=== PATIENT | male | born 1975 | race Caucasian/White ===

== ENCOUNTER 2017-01-04 22:32 | Emergency (ER) | payer OTHER ==
--- NOTE | 2017-01-05 02:06 | ED CLINICAL REPORT ---
Clinical Report - Physicians/Mid Levels [facility] [address] [place] [address] 01/04/2017 22:34 Patient: MANNY GAN Time Seen: 23:03. Arrived- By private vehicle. Historian- patient. CPT: ER phys charges level 4 (#[id number]). HISTORY OF PRESENT ILLNESS Chief Complaint: BACK PAIN. Onset was today and it is still present. It is described as being in the area of the left side of the upper thoracic spine and left interscapular area. The quality is noted to be sharp, aching and "pain". No bladder dysfunction, bowel dysfunction, sensory loss or motor loss. Patient notes an injury. Mechanism of injury- (Cough then sudden pain left posterior thorax. Vomiting due to pain.). No other injury. Similar symptoms previously: None. Recent medical care: Not recently seen/assessed. REVIEW OF SYSTEMS No fever, chills, headache, sore throat or difficulty breathing. No chest pain, skin rash, abdominal pain, nausea or vomiting. No diarrhea, black stools, difficulty with urination or urinary frequency. The patient has had a moderate cough productive of sputum (started the chest pains.). All systems otherwise negative, except as recorded above. PAST HISTORY Myocardial Infarction. Fractured Metacarpal. Hematuria. Coronary Artery Disease. Atypical Chest Pain. Alcohol Intoxication. PTSD. Tetanus Status. Chest Pain. Hyperlipidemia. Hypertension. Narcotic Withdrawal. Immunizations. ADDITIONAL SURGERIES: Back Surgery. Coronary Angioplasty. Pacemaker. Tonsillectomy. Medications: Furosemide Oral. Coreg Oral. Clopidogrel Bisulfate Oral. Vitamin D Oral. Lisinopril Oral. Omeprazole Oral. Atorvastatin Calcium Oral. Aspirin Oral. FLUoxetine HCl Oral. Allergies: Ativan. SOCIAL HISTORY Light tobacco smoker (cigarette)- less than 1/2 a pack per day. No alcohol use or drug use. ADDITIONAL NOTES The nursing notes have been reviewed. PHYSICAL EXAM Vital Signs: 01/04/2017 22:37 BP: 152/98. HR: 61. RR: 26. O2 saturation: 97%. Pain level now: 10. Appearance: Alert. Patient in mild distress. HEENT: Normal external inspection. Eyes: Pupils equal, round and reactive to light. ENT: Ears normal. Pharynx normal. Neck: Normal inspection. Neck nontender. Painless ROM. CVS: Normal heart rate and rhythm. Heart sounds normal. Pulses normal. Respiratory: No respiratory distress. Breath sounds normal. Chest nontender. Abdomen: Soft and nontender. Back: Moderate soft tissue tenderness in the left upper and mid thoracic area. Skin: Skin warm. Normal skin color. No rash. Extremities: Extremities exhibit normal ROM. Extremities nontender. Neuro: Oriented X 3. Mood/affect normal. No motor deficit. No sensory deficit. Reflexes normal. LABS, X-RAYS, AND EKG EKG: No acute process. Normal sinus rhythm. Normal P waves. Normal WIN. Q waves in lead I, aVL, V1, V2, V3, V4 and V5. Prior EKG unavailable. The study has been interpreted contemporaneously. The study has been independently viewed by me. Artifact present. X-Rays: Chest X-ray negative. Rib series negative. PROGRESS AND PROCEDURES Course of Care: Multiple meds for pain and spasm. Patient is stable. Symptoms much better. Patient/family counseled. Disposition: Discharged. Condition: stable. CLINICAL IMPRESSION Intercostal muscle tear , left , posterior chest. Bronchitis. INSTRUCTIONS No strenuous activity. Your Current Medications: CONTINUE TAKING THE FOLLOWING MEDICATIONS: Aspirin Oral. Atorvastatin Calcium Oral. Clopidogrel Bisulfate Oral. Coreg Oral. FLUoxetine HCl Oral. Furosemide Oral. Lisinopril Oral. Omeprazole Oral. Vitamin D Oral. Prescription Medications: Hydrocodone/APAP 5mg/325mg: take 1 to 2 orally every 6 hours as needed for pain. Dispense fifteen (15). No refills. Robaxin 750 mg: Take 2 orally every 6 hours as needed for muscle spasm. Dispense thirty (30). No refills. Substitution is permissible. Cephalexin 500mg: take 1 tab orally every 6 hours for 7 days. No refills Phenergan 12.5 mg tablets: take 1-2 orally every 6 hours as needed for nausea. Dispense fifteen (15). No refill Follow-up: Follow up with your doctor in one week. Call for an appointment. Understanding of the discharge instructions verbalized by patient and family. (Electronically signed by Oscar Roa MD 01/07/2017 16:20)
--- NOTE | 2017-01-05 02:06 | ED NURSING NOTES ---
Clinical Report - Nurses [facility] [place] [address] 01/04/2017 22:34 Patient: MANNY GAN TRIAGE Triage time 22:37. Acuity: LEVEL 4. Chief Complaint: BACK PAIN and (Pulled a back muscle while vomiting two days ago, reports being sick. He said today he was coughing in his shop when his back started hurting extremely bad. Pacemaker placed 2 months ago, last heart attack July 2016. He does not believe this is his heart. No urine or bowel incontinence. Describes pain as "someone tearing muscle off the bone." Alleviating factors none. Aggravating factors any movement.). Alert. --22:50 Edgar Florez R.N. 22:37 01/04/17. BP: 152/98 (regular adult cuff) taken on the left arm, via an automated monitor, while sitting. HR: 61 (normal rate). RR: 26 (regular, unlabored and rapid). O2 saturation: 97% on room air. Pain level now: 07/01. --22:50 Edgar Florez R.N. 22:55 01/04/17. Temp: 98.3 F (temporal). RN notified. --22:56 Mely Mayorga. Weight: 72.5 kg stated. Height/Length: 65 inches Per Patient. BMI: 26.6. --22:43 Edgar Florez R.N. Medications FLUoxetine HCl Oral. --22:45 Edgar Florez R.N. Aspirin Oral. --22:46 Edgar Florez R.N. Atorvastatin Calcium Oral. --22:46 Edgar Florez R.N. Omeprazole Oral. --22:46 Edgar Florez R.N. Lisinopril Oral. --22:46 Edgar Florez R.N. Vitamin D Oral. --22:46 Edgar Florez R.N. Clopidogrel Bisulfate Oral. --22:46 Edgar Florez R.N. Coreg Oral. --22:47 Edgar Florez R.N. Furosemide Oral. --22:47 Edgar Florez R.N. Allergies Ativan. --22:42 Edgar Florez R.N. Medication/allergy information source: the patient. --22:50 Edgar Florez R.N. History Arrived by private vehicle. Historian: patient. Accompanied by family. This started today. He has had tingling of the right hand (mild) and left hand (mild). He has had nausea and vomiting. No chest pain or difficulty breathing. 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 SOCIAL HX: Never smoker. History of heavy drug use: marijuana. No alcohol use. He has not traveled outside the [place] The patient was not exposed to MRSA. No infectious disease exposure. ABUSE ASSESSMENT: Abuse assessment: The patient was asked "Do you feel safe in your home?" and "Has anyone hurt you or threatened to hurt you?". No report of abuse. SELF HARM ASSESSMENT: A self harm assessment was performed. The patient answered "no" to the question "Do you have thoughts of harming or killing yourself?" and "Have you recently had thoughts about harming or killing others?". FALL RISK ASSESSMENT: Fall risk assessment completed. No fall risk identified. NUTRITIONAL RISK ASSESSMENT: The nutritional risk assessment revealed no deficiencies. FUNCTIONAL ASSESSMENT: Functional assessment: no impairments noted. LEARNING NEEDS ASSESSMENT: The learning needs assessment revealed no barriers. SKIN INTEGRITY ASSESSMENT: Skin integrity risk assessment completed. No skin integrity risk identified. --22:50 Edgar Florez R.N. PROBLEMS: Myocardial Infarction. Fractured Metacarpal. Hematuria. Coronary Artery Disease. Atypical Chest Pain. Alcohol Intoxication. PTSD. Tetanus Status. Chest Pain. Hyperlipidemia. Hypertension. Narcotic Withdrawal. Immunizations. --22:42 Edgar Florez R.N. GI Bleeding [RuleOut]. --:42 Edgar Florez R.N. ADDITIONAL SURGERIES: Back Surgery. Coronary Angioplasty. Pacemaker. Tonsillectomy. --22:42 Edgar Florez R.N. Assessment GENERAL / NEURO / PSYCH: Alert. Oriented X 4. Appears in pain. Ankit Coma Scale: 15- eyes open spontaneously (4); best verbal response- oriented x 4 (5); best motor response- obeys commands (6). Patient appears calm and cooperative. ( Unable to lie on stretcher on his back.). RESPIRATORY: ( Tachypneic). BACK: Limited ROM in the back. No vertebral point tenderness. Soft tissue tenderness in the left mid thoracic paraspinous region. SKIN: Skin is warm and dry. --22:50 Edgar Florez R.N. Interventions ID band on patient. Attempted EKG. Pt unable to lie down on stretcher at this time. To treatment room. --22:50 Edgar Florez R.N. 22:48 01/04/2017 Site #1 started via IV in the right forearm with an 18g angiocath, with aseptic technique and good blood return; one attempt. Blood drawn: rainbow set. Labeled in the presence of the patient and sent to the lab. Saline lock flushed with 10 mL saline. --22:48 Edgar Florez R.N. PHYSICAL ASSESSMENT GENERAL / NEURO / PSYCH: Appears in no acute distress. --02:30 Gaston Billy R.N. GENERAL / NEURO / PSYCH: Oriented X 4. --02:30 Gaston Billy R.N. RESPIRATORY: Respirations not labored. CVS: Capillary refill less than 2 seconds. --02:31 Gaston Billy R.N. NURSING PROGRESS NOTES The initial plan of care for this patient has been created This plan of care was discussed with the patient. Neuro-vascular extremity check distal to injury: pulses intact, no edema, capillary refill <2 seconds and sensation intact. Reassurance given to the patient. Two patient identifiers checked. Call light placed in reach. Side rails up x 1. Bed placed in lowest position. Brakes of bed on. --22:50 Edgar Florez R.N. 22:50 01/04/17. BP: 152/105 (regular adult cuff) taken on the right arm, via an automated monitor, while sitting. HR: 64 (normal rate). RR: 20 (regular, unlabored and normal). O2 saturation: 99% on room air. --22:52 Edgar Florez R.N. 23:41 01/04/2017 Zofran ODT (Ondansetron) PO Tablets 4 mg given. Allergies verified and confirmed 5 rights. --23:41 Hari Roberts R.N. 23:45 01/04/2017 Zofran (Ondansetron HCl) IVP 4 mg given over 2 minute(s) via site #1. Allergies verified and confirmed 5 rights. IV patency established. IV site checked: no pain, redness, or swelling. IV flushed thoroughly pre- and post-medication administration. IVP given by RN. --23:45 Hari Roberts R.N. EKG time: (0043 AM). EKG was ordered, performed by a tech and shown to the ED physician. --00:48 Mely Mayorga 00:52. Patient transported to radiology by stretcher with tech. --00:54 Hari Guallpa R.N. 00:55 01/05/2017 PHENERGAN (Promethazine HCl) IVP 25 mg given over 2 minute(s) via site #1. Allergies verified and confirmed 5 rights. IV patency established. IV site checked: no pain, redness, or swelling. IV flushed thoroughly pre- and post-medication administration. --01:05 Hari Guallpa R.NSharonda 00:57 01/05/2017 Toradol IVP 30 mg given over 2 minute(s) via site #1. Allergies verified and confirmed 5 rights. IV patency established. IV site checked: no pain, redness, or swelling. IV flushed thoroughly pre- and post-medication administration. --01:06 Hari Guallpa R.NSharonda 00:59 01/05/2017 Valium (Diazepam) IVP 2 mg given over 2 minute(s) via site #1. Allergies verified, confirmed 5 rights and sedative warning given to the patient and patient's family. IV patency established. IV site checked: no pain, redness, or swelling. IV flushed thoroughly pre- and post-medication administration. --01:07 Hari Guallpa R.N. 01:01 01/05/2017 Dilaudid (HYDROmorphone HCl PF) IVP 0.5 mg given over 2 minute(s) via site #1. Allergies verified, confirmed 5 rights and sedative warning given to the patient. IV patency established. IV site checked: no pain, redness, or swelling. IV flushed thoroughly pre- and post-medication administration. --01:08 Hari Guallpa R.N. ( Report received from Hari Hammond RN). --01:15 Gaston Billy R.N. 01:21 01/05/17. HR: 66. O2 saturation: 95% on room air. --01:22 Gaston Billy R.N. 01:27 01/05/17. BP: 117/79. HR: 78. RR: 20 (regular and unlabored). O2 saturation: 95% on room air. Pain level now: 07/01. --01:28 Gaston Billy R.N. ( Patient states "That nausea is better, amazingly better." Patient is laying in bed, conversing with companions at the bedside. He appears calm.). --01:28 Gaston Billy R.N. 02:25 01/05/2017 PHENERGAN (Promethazine HCl) IVP 12.5 mg given over 2 minute(s) via site #1. Allergies verified and confirmed 5 rights. IV patency established. IV site checked: no pain, redness, or swelling. IV flushed thoroughly pre- and post-medication administration. IVP given by RN. --02:28 Gaston Billy R.N. 02:29 01/05/2017 Site #1 removed upon discharge. Manual pressure and bandage applied. --02:29 Gaston Billy R.N. DISPOSITION / DISCHARGE Departure time: 02:30. Condition at departure: stable. No learning barriers present. Discharge instructions provided and reviewed with the patient. Reviewed warnings. Reviewed medication(s) side effects, precautions, dosing and course information. Prescription(s) given to the patient. Treatments reviewed. Reviewed referrals for followup. Patient and family verbalized understanding. Written instructions provided in Slovenian. The patient was discharged home and accompanied by family. He left the Emergency Department ambulatory and via private vehicle. Family member driving. --02:30 Gaston Billy R.N. 02:29 01/05/17. BP: 112/62. HR: 69. RR: 20 (regular and unlabored). O2 saturation: 96% on room air. Pain level now: 07/01. --02:30 Gaston Billy R.N. Locked/Released at 01/05/2017 2:31 by Gaston Billy R.N.
--- NOTE | 2017-01-05 02:06 | ED CLINICAL REPORT ---
Clinical Report - Physicians/Mid Levels [facility] [address] [place] [address] 01/04/2017 22:34 Patient: MANNY GAN Time Seen: 23:03. Arrived- By private vehicle. Historian- patient. CPT: ER phys charges level 4 (#[id number]). HISTORY OF PRESENT ILLNESS Chief Complaint: BACK PAIN. Onset was today and it is still present. It is described as being in the area of the left side of the upper thoracic spine and left interscapular area. The quality is noted to be sharp, aching and "pain". No bladder dysfunction, bowel dysfunction, sensory loss or motor loss. Patient notes an injury. Mechanism of injury- (Cough then sudden pain left posterior thorax. Vomiting due to pain.). No other injury. Similar symptoms previously: None. Recent medical care: Not recently seen/assessed. REVIEW OF SYSTEMS No fever, chills, headache, sore throat or difficulty breathing. No chest pain, skin rash, abdominal pain, nausea or vomiting. No diarrhea, black stools, difficulty with urination or urinary frequency. The patient has had a moderate cough productive of sputum (started the chest pains.). All systems otherwise negative, except as recorded above. PAST HISTORY Myocardial Infarction. Fractured Metacarpal. Hematuria. Coronary Artery Disease. Atypical Chest Pain. Alcohol Intoxication. PTSD. Tetanus Status. Chest Pain. Hyperlipidemia. Hypertension. Narcotic Withdrawal. Immunizations. ADDITIONAL SURGERIES: Back Surgery. Coronary Angioplasty. Pacemaker. Tonsillectomy. Medications: Furosemide Oral. Coreg Oral. Clopidogrel Bisulfate Oral. Vitamin D Oral. Lisinopril Oral. Omeprazole Oral. Atorvastatin Calcium Oral. Aspirin Oral. FLUoxetine HCl Oral. Allergies: Ativan. SOCIAL HISTORY Light tobacco smoker (cigarette)- less than 1/2 a pack per day. No alcohol use or drug use. ADDITIONAL NOTES The nursing notes have been reviewed. PHYSICAL EXAM Vital Signs: 01/04/2017 22:37 BP: 152/98. HR: 61. RR: 26. O2 saturation: 97%. Pain level now: 10. Appearance: Alert. Patient in mild distress. HEENT: Normal external inspection. Eyes: Pupils equal, round and reactive to light. ENT: Ears normal. Pharynx normal. Neck: Normal inspection. Neck nontender. Painless ROM. CVS: Normal heart rate and rhythm. Heart sounds normal. Pulses normal. Respiratory: No respiratory distress. Breath sounds normal. Chest nontender. Abdomen: Soft and nontender. Back: Moderate soft tissue tenderness in the left upper and mid thoracic area. Skin: Skin warm. Normal skin color. No rash. Extremities: Extremities exhibit normal ROM. Extremities nontender. Neuro: Oriented X 3. Mood/affect normal. No motor deficit. No sensory deficit. Reflexes normal. LABS, X-RAYS, AND EKG EKG: No acute process. Normal sinus rhythm. Normal P waves. Normal WIN. Q waves in lead I, aVL, V1, V2, V3, V4 and V5. Prior EKG unavailable. The study has been interpreted contemporaneously. The study has been independently viewed by me. Artifact present. X-Rays: Chest X-ray negative. Rib series negative. PROGRESS AND PROCEDURES Course of Care: Multiple meds for pain and spasm. Patient is stable. Symptoms much better. Patient/family counseled. Disposition: Discharged. Condition: stable. CLINICAL IMPRESSION Intercostal muscle tear , left , posterior chest. Bronchitis. INSTRUCTIONS No strenuous activity. Your Current Medications: CONTINUE TAKING THE FOLLOWING MEDICATIONS: Aspirin Oral. Atorvastatin Calcium Oral. Clopidogrel Bisulfate Oral. Coreg Oral. FLUoxetine HCl Oral. Furosemide Oral. Lisinopril Oral. Omeprazole Oral. Vitamin D Oral. Prescription Medications: Hydrocodone/APAP 5mg/325mg: take 1 to 2 orally every 6 hours as needed for pain. Dispense fifteen (15). No refills. Robaxin 750 mg: Take 2 orally every 6 hours as needed for muscle spasm. Dispense thirty (30). No refills. Substitution is permissible. Cephalexin 500mg: take 1 tab orally every 6 hours for 7 days. No refills Phenergan 12.5 mg tablets: take 1-2 orally every 6 hours as needed for nausea. Dispense fifteen (15). No refill Follow-up: Follow up with your doctor in one week. Call for an appointment. Understanding of the discharge instructions verbalized by patient and family. (Electronically signed by Oscar Roa MD 01/07/2017 16:20)
--- NOTE | 2017-01-05 02:07 | ED ORDER SUMMARY ---
..... Patient: MANNY GAN OrderSheet [facility] VisitID: [id number] [place] [address] 41y, M Registration Date/Time: 01/04/2017 ORDER SHEET Weight: 72.5 kg (stated) Allergies: Ativan GENERAL ORDERS: Ribs Unilat w PA Chest Left Urgent (00:39 01/05/2017 Talya POTTS) (Ack 0:42 CHagerty ER Gelatin Maker Utility) (1:01 RFay) EKG - ER Stat (00:39 01/05/2017 Talya POTTS) (0:42 Wavesat ER Gelatin Maker Utility) MEDICATION ORDERS: Zofran ODT PO 4 mg (NOW) (23:40 01/04/2017 omanelli R.N. verbal order read back to Talya POTTS) (23:41 JRomanelli R.N.) Phenergan IV 25 mg (NOW) (00:37 01/05/2017 Talya POTTS) (Ack 0:44 JQuivey R.N.) (1:05 JQuivey R.N.) Phenergan IV 12.5 mg (NOW) (02:20 01/05/2017 Talya POTTS) (2:28 DDavis R.N.) IV FLUIDS: Zofran IV 4 mg (NOW) (23:44 01/04/2017 JRomanelli R.N. verbal order read back to Talya POTTS) (23:45 JRomanelli R.N.) Toradol IV 30 mg (NOW) (00:37 01/05/2017 Talya POTTS) (Ack 0:45 JQuivey R.N.) (1:06 JQuivey R.N.) Dilaudid IV 0.5 mg (NOW) (00:37 01/05/2017 Talya POTTS) (Ack 0:45 JQuivey R.N.) (1:08 JQuivey R.N.) Valium IV 2 mg (NOW) (00:38 01/05/2017 Talya POTTS) (Ack 0:45 JQuivey R.N.) (1:07 JQuivey R.N.) ORDER SHEET NOTES: [Electronically signed by Gaston Billy R.N. (02:01/05/2017)] [Electronically signed by Oscar Roa MD (16:20 01/07/2017)] [Electronically locked/signed by Gaston Billy R.N. (02:01/05/2017)]
--- NOTE | 2017-01-05 02:07 | ED ORDER SUMMARY ---
..... Patient: MANNY GAN OrderSheet [facility] VisitID: [id number] [place] [address] 41y, M Registration Date/Time: 01/04/2017 ORDER SHEET Weight: 72.5 kg (stated) Allergies: Ativan GENERAL ORDERS: Ribs Unilat w PA Chest Left Urgent (00:39 01/05/2017 Talya POTTS) (Ack 0:42 CHagerty ER Lease Attendant) (1:01 RFay) EKG - ER Stat (00:39 01/05/2017 Talya POTTS) (0:42 M-SIX ER Lease Attendant) MEDICATION ORDERS: Zofran ODT PO 4 mg (NOW) (23:40 01/04/2017 omanelli R.N. verbal order read back to Talya POTTS) (23:41 JRomanelli R.N.) Phenergan IV 25 mg (NOW) (00:37 01/05/2017 Talya POTTS) (Ack 0:44 JQuivey R.N.) (1:05 JQuivey R.N.) Phenergan IV 12.5 mg (NOW) (02:20 01/05/2017 Talya POTTS) (2:28 DDavis R.N.) IV FLUIDS: Zofran IV 4 mg (NOW) (23:44 01/04/2017 JRomanelli R.N. verbal order read back to Talya POTTS) (23:45 JRomanelli R.N.) Toradol IV 30 mg (NOW) (00:37 01/05/2017 Talya POTTS) (Ack 0:45 JQuivey R.N.) (1:06 JQuivey R.N.) Dilaudid IV 0.5 mg (NOW) (00:37 01/05/2017 Talya POTTS) (Ack 0:45 JQuivey R.N.) (1:08 JQuivey R.N.) Valium IV 2 mg (NOW) (00:38 01/05/2017 Talya POTTS) (Ack 0:45 JQuivey R.N.) (1:07 JQuivey R.N.) ORDER SHEET NOTES: [Electronically signed by Gaston Billy R.N. (02:01/05/2017)] [Electronically signed by Oscar Roa MD (16:20 01/07/2017)] [Electronically locked/signed by Gaston Billy R.N. (02:01/05/2017)]
--- NOTE | 2017-01-05 07:02 | DIAGNOSTIC IMAGING REPORT ---
PROCEDURE: XR RIBS UNILAT W/PA CHEST-LT INDICATION: TRAUMA/INJURY TECHNIQUE: Two views of the left ribs with single PA view chest. COMPARISON: Compared to chest x-ray on 07/19/2013. FINDINGS: LEFT RIBS: Left ribs are normal. No evidence of fracture. CHEST: Left subclavian pacemaker/defibrillator. There is minor linear scarring at the left lung base. Lungs are otherwise clear. Probable left coronary vascular stent. Heart and mediastinum are normal size. IMPRESSION: 1. Normal left ribs. 2. Left subclavian pacemaker/defibrillator. 3. Probable left coronary stent.
--- NOTE | 2017-01-07 16:20 | ED MED RECONCILIATION SUMMARY ---
Patient: MANNY GAN Medication Reconciliation Report [facility] VisitID: [id number] [place] [address] 41y, M Registration Date/Time: 01/04/2017 Weight: 72.5 kg Height/Length: 65 in. BMI: 26.6 ALLERGIES: Ativan The patient's Home Medications are listed below: CONTINUE TAKING THE FOLLOWING MEDICATIONS: Aspirin Oral Atorvastatin Calcium Oral Clopidogrel Bisulfate Oral Coreg Oral FLUoxetine HCl Oral Furosemide Oral Lisinopril Oral Omeprazole Oral Vitamin D Oral The source(s) of the original Home Medication information: patient The following Medications were given to the patient in the Emergency Department: Zofran ODT [PO] PO 4 mg, administered: 01/04/2017 11:41:00 PM Zofran [IVP] IVP 4 mg, administered: 01/04/2017 11:45:00 PM PHENERGAN [IVP] IVP 25 mg, administered: 01/05/2017 12:55:00 AM Toradol [IVP] IVP 30 mg, administered: 01/05/2017 12:57:00 AM Valium [IVP] IVP 2 mg, administered: 01/05/2017 12:59:00 AM Dilaudid [IVP] IVP 0.5 mg, administered: 01/05/2017 1:01:00 AM PHENERGAN [IVP] IVP 12.5 mg, administered: 01/05/2017 2:25:00 AM The following Medications were prescribed to the patient: Hydrocodone/APAP 5mg/325mg: take 1 to 2 orally every 6 hours as needed for pain. Dispense fifteen (15). No refills. -- Oscar Roa MD Robaxin 750 mg: Take 2 orally every 6 hours as needed for muscle spasm. Dispense thirty (30). No refills. Substitution is permissible. -- Oscar Roa MD Cephalexin 500mg: take 1 tab orally every 6 hours for 7 days. No refills -- Oscar Roa MD Phenergan 12.5 mg tablets: take 1-2 orally every 6 hours as needed for nausea. Dispense fifteen (15). No refill -- Oscar Roa MD
--- NOTE | 2017-01-07 16:20 | ED DISCHARGE INSTRUCTIONS ---
Patient: MANNY GAN General Instructions [facility] VisitID: [id number] [place] [address] 41y, M Registration Date/Time: 01/04/2017 Intercostal muscle tear , left , posterior chest. Bronchitis. INSTRUCTIONS No strenuous activity. Your Current Medications: CONTINUE TAKING THE FOLLOWING MEDICATIONS: Aspirin Oral. Atorvastatin Calcium Oral. Clopidogrel Bisulfate Oral. Coreg Oral. FLUoxetine HCl Oral. Furosemide Oral. Lisinopril Oral. Omeprazole Oral. Vitamin D Oral. Prescription Medications: Hydrocodone/APAP 5mg/325mg: take 1 to 2 orally every 6 hours as needed for pain. Dispense fifteen (15). No refills. Robaxin 750 mg: Take 2 orally every 6 hours as needed for muscle spasm. Dispense thirty (30). No refills. Substitution is permissible. Cephalexin 500mg: take 1 tab orally every 6 hours for 7 days. No refills Phenergan 12.5 mg tablets: take 1-2 orally every 6 hours as needed for nausea. Dispense fifteen (15). No refill Follow-up: Follow up with your doctor in one week. Call for an appointment. Understanding of the discharge instructions verbalized by patient and family. ADDITIONAL INFORMATION Promethazine Hydrochloride Oral tablet What is this medicine? PROMETHAZINE (proe METH a zeen) is an antihistamine. It is used to treat allergic reactions and to treat or prevent nausea and vomiting from illness or motion sickness. It is also used to make you sleep before surgery, and to help treat pain or nausea after surgery. How should I use this medicine? Take this medicine by mouth with a glass of water. Follow the directions on the prescription label. Take your doses at regular intervals. Do not take your medicine more often than directed. Talk to your emt paramedic regarding the use of this medicine in children. Special care may be needed. This medicine should not be given to infants and children younger than 2 years old. What side effects may I notice from receiving this medicine? Side effects that you should report to your doctor or health transitional care nurse as soon as possible: blurred vision irregular heartbeat, palpitations or chest pain muscle or facial twitches pain or difficulty passing urine seizures skin rash slowed or shallow breathing unusual bleeding or bruising yellowing of the eyes or skin Side effects that usually do not require medical attention (report to your doctor or health transitional care nurse if they continue or are bothersome): headache nightmares, agitation, nervousness, excitability, not able to sleep (these are more likely in children) stuffy nose What may interact with this medicine? Do not take this medicine with any of the following medications: medicines called MAO Inhibitors like Nardil, Parnate, Marplan, Eldepryl other phenothiazines like trimethobenzamide This medicine may also interact with the following medications: barbiturates like phenobarbital bromocriptine certain antidepressants certain antihistamines used in allergy or cold medicines epinephrine levodopa medicines for sleep medicines for mental problems and psychotic disturbances medicines for movement abnormalities as in Parkinson's disease, or for gastrointestinal problems muscle relaxants prescription pain medicines What if I miss a dose? If you miss a dose, take it as soon as you can. If it is almost time for your next dose, take only that dose. Do not take double or extra doses. Where should I keep my medicine? Keep out of the reach of children. Store at room temperature, between 20 and 25 degrees C (68 and 77 degrees F). Protect from light. Throw away any unused medicine after the expiration date. What should I tell my health care provider before I take this medicine? They need to know if you have any of these conditions: glaucoma high blood pressure or heart disease kidney disease liver disease lung or breathing disease, like asthma prostate trouble pain or difficulty passing urine seizures an unusual or allergic reaction to promethazine or phenothiazines, other medicines, foods, dyes, or preservatives or trying to get breast-feeding What should I watch for while using this medicine? Tell your doctor or health transitional care nurse if your symptoms do not start to get better in 1 to 2 days. You may get drowsy or dizzy. Do not drive, use machinery, or do anything that needs mental alertness until you know how this medicine affects you. To reduce the risk of dizzy or fainting spells, do not stand or sit up quickly, especially if you are an older patient. Alcohol may increase dizziness and drowsiness. Avoid alcoholic drinks. Your mouth may get dry. Chewing sugarless gum or sucking hard candy, and drinking plenty of water may help. Contact your doctor if the problem does not go away or is severe. This medicine may cause dry eyes and blurred vision. If you wear contact lenses you may feel some discomfort. Lubricating drops may help. See your eye doctor if the problem does not go away or is severe. This medicine can make you more sensitive to the sun. Keep out of the sun. If you cannot avoid being in the sun, wear protective clothing and use sunscreen. Do not use sun lamps or tanning beds/booths. If you are diabetic, check your blood-sugar levels regularly. You have been given the following additional information: Promethazine Hydrochloride Oral tablet No strenuous activity. (Electronically signed by Oscar Roa MD 01/07/2017 16:20)
--- NOTE | 2017-01-07 16:20 | ED MED RECONCILIATION SUMMARY ---
Patient: MANNY GAN Medication Reconciliation Report [facility] VisitID: [id number] [place] [address] 41y, M Registration Date/Time: 01/04/2017 Weight: 72.5 kg Height/Length: 65 in. BMI: 26.6 ALLERGIES: Ativan The patient's Home Medications are listed below: CONTINUE TAKING THE FOLLOWING MEDICATIONS: Aspirin Oral Atorvastatin Calcium Oral Clopidogrel Bisulfate Oral Coreg Oral FLUoxetine HCl Oral Furosemide Oral Lisinopril Oral Omeprazole Oral Vitamin D Oral The source(s) of the original Home Medication information: patient The following Medications were given to the patient in the Emergency Department: Zofran ODT [PO] PO 4 mg, administered: 01/04/2017 11:41:00 PM Zofran [IVP] IVP 4 mg, administered: 01/04/2017 11:45:00 PM PHENERGAN [IVP] IVP 25 mg, administered: 01/05/2017 12:55:00 AM Toradol [IVP] IVP 30 mg, administered: 01/05/2017 12:57:00 AM Valium [IVP] IVP 2 mg, administered: 01/05/2017 12:59:00 AM Dilaudid [IVP] IVP 0.5 mg, administered: 01/05/2017 1:01:00 AM PHENERGAN [IVP] IVP 12.5 mg, administered: 01/05/2017 2:25:00 AM The following Medications were prescribed to the patient: Hydrocodone/APAP 5mg/325mg: take 1 to 2 orally every 6 hours as needed for pain. Dispense fifteen (15). No refills. -- Oscar Roa MD Robaxin 750 mg: Take 2 orally every 6 hours as needed for muscle spasm. Dispense thirty (30). No refills. Substitution is permissible. -- Oscar Roa MD Cephalexin 500mg: take 1 tab orally every 6 hours for 7 days. No refills -- Oscar Roa MD Phenergan 12.5 mg tablets: take 1-2 orally every 6 hours as needed for nausea. Dispense fifteen (15). No refill -- Oscar Roa MD
--- NOTE | 2017-01-07 16:20 | ED MAR SUMMARY ---
..... Medication Administration Record [facility] [address] [place] [address] Patient: MANNY GAN Visit ID: [id number] 41y, M Weight: 72.5 kg Height/Length: 65 in BMI: 26.6 ALLERGIES: Ativan Given 23:41 01/04/2017 Hari Roberts R.N. Medication Administered: ZOFRAN ODT [PO] (ONDANSETRON), Dose: 4 mg Tablets PO. Medication Ordered: Zofran ODT PO 4 mg (NOW). Given 23:45 01/04/2017 Hari Roberts R.N. Medication Administered: ZOFRAN [IVP] (ONDANSETRON HCL), Dose: 4 mg IVP over 2 minute(s), Site: #1 right forearm. Medication Ordered: Zofran IV 4 mg (NOW). Given 00:55 01/05/2017 Hari Guallpa R.N. Medication Administered: PHENERGAN [IVP] (PROMETHAZINE HCL), Dose: 25 mg IVP over 2 minute(s), Site: #1 right forearm. Medication Ordered: Phenergan IV 25 mg (NOW). Given 00:57 01/05/2017 Hari Guallpa R.N. Medication Administered: TORADOL [IVP], Dose: 30 mg IVP over 2 minute(s), Site: #1 right forearm. Medication Ordered: Toradol IV 30 mg (NOW). Given 00:59 01/05/2017 Hari Guallpa R.NSharonda Medication Administered: VALIUM [IVP] (DIAZEPAM), Dose: 2 mg IVP over 2 minute(s), Site: #1 right forearm. Medication Ordered: Valium IV 2 mg (NOW). Given 01:01 01/05/2017 Hari Guallpa R.N. Medication Administered: DILAUDID [IVP] (HYDROMORPHONE HCL PF), Dose: 0.5 mg IVP over 2 minute(s), Site: #1 right forearm. Medication Ordered: Dilaudid IV 0.5 mg (NOW). Given 02:25 01/05/2017 Gaston Billy R.N. Medication Administered: PHENERGAN [IVP] (PROMETHAZINE HCL), Dose: 12.5 mg IVP over 2 minute(s), Site: #1 right forearm. Medication Ordered: Phenergan IV 12.5 mg (NOW).
--- NOTE | 2017-01-07 16:20 | ED MAR SUMMARY ---
..... Medication Administration Record [facility] [address] [place] [address] Patient: MANNY GAN Visit ID: [id number] 41y, M Weight: 72.5 kg Height/Length: 65 in BMI: 26.6 ALLERGIES: Ativan Given 23:41 01/04/2017 Hari Roberts R.N. Medication Administered: ZOFRAN ODT [PO] (ONDANSETRON), Dose: 4 mg Tablets PO. Medication Ordered: Zofran ODT PO 4 mg (NOW). Given 23:45 01/04/2017 Hari Roberts R.N. Medication Administered: ZOFRAN [IVP] (ONDANSETRON HCL), Dose: 4 mg IVP over 2 minute(s), Site: #1 right forearm. Medication Ordered: Zofran IV 4 mg (NOW). Given 00:55 01/05/2017 Hari Guallpa R.N. Medication Administered: PHENERGAN [IVP] (PROMETHAZINE HCL), Dose: 25 mg IVP over 2 minute(s), Site: #1 right forearm. Medication Ordered: Phenergan IV 25 mg (NOW). Given 00:57 01/05/2017 Hari Guallpa R.N. Medication Administered: TORADOL [IVP], Dose: 30 mg IVP over 2 minute(s), Site: #1 right forearm. Medication Ordered: Toradol IV 30 mg (NOW). Given 00:59 01/05/2017 Hari Guallpa R.NSharonda Medication Administered: VALIUM [IVP] (DIAZEPAM), Dose: 2 mg IVP over 2 minute(s), Site: #1 right forearm. Medication Ordered: Valium IV 2 mg (NOW). Given 01:01 01/05/2017 Hari Guallpa R.N. Medication Administered: DILAUDID [IVP] (HYDROMORPHONE HCL PF), Dose: 0.5 mg IVP over 2 minute(s), Site: #1 right forearm. Medication Ordered: Dilaudid IV 0.5 mg (NOW). Given 02:25 01/05/2017 Gaston Billy R.N. Medication Administered: PHENERGAN [IVP] (PROMETHAZINE HCL), Dose: 12.5 mg IVP over 2 minute(s), Site: #1 right forearm. Medication Ordered: Phenergan IV 12.5 mg (NOW).
--- NOTE | 2017-01-07 16:20 | ED DISCHARGE INSTRUCTIONS ---
Patient: MANNY GAN General Instructions [facility] VisitID: [id number] [place] [address] 41y, M Registration Date/Time: 01/04/2017 Intercostal muscle tear , left , posterior chest. Bronchitis. INSTRUCTIONS No strenuous activity. Your Current Medications: CONTINUE TAKING THE FOLLOWING MEDICATIONS: Aspirin Oral. Atorvastatin Calcium Oral. Clopidogrel Bisulfate Oral. Coreg Oral. FLUoxetine HCl Oral. Furosemide Oral. Lisinopril Oral. Omeprazole Oral. Vitamin D Oral. Prescription Medications: Hydrocodone/APAP 5mg/325mg: take 1 to 2 orally every 6 hours as needed for pain. Dispense fifteen (15). No refills. Robaxin 750 mg: Take 2 orally every 6 hours as needed for muscle spasm. Dispense thirty (30). No refills. Substitution is permissible. Cephalexin 500mg: take 1 tab orally every 6 hours for 7 days. No refills Phenergan 12.5 mg tablets: take 1-2 orally every 6 hours as needed for nausea. Dispense fifteen (15). No refill Follow-up: Follow up with your doctor in one week. Call for an appointment. Understanding of the discharge instructions verbalized by patient and family. ADDITIONAL INFORMATION Promethazine Hydrochloride Oral tablet What is this medicine? PROMETHAZINE (proe METH a zeen) is an antihistamine. It is used to treat allergic reactions and to treat or prevent nausea and vomiting from illness or motion sickness. It is also used to make you sleep before surgery, and to help treat pain or nausea after surgery. How should I use this medicine? Take this medicine by mouth with a glass of water. Follow the directions on the prescription label. Take your doses at regular intervals. Do not take your medicine more often than directed. Talk to your entomology professor regarding the use of this medicine in children. Special care may be needed. This medicine should not be given to infants and children younger than 2 years old. What side effects may I notice from receiving this medicine? Side effects that you should report to your doctor or health inpatient care manager rn as soon as possible: blurred vision irregular heartbeat, palpitations or chest pain muscle or facial twitches pain or difficulty passing urine seizures skin rash slowed or shallow breathing unusual bleeding or bruising yellowing of the eyes or skin Side effects that usually do not require medical attention (report to your doctor or health inpatient care manager rn if they continue or are bothersome): headache nightmares, agitation, nervousness, excitability, not able to sleep (these are more likely in children) stuffy nose What may interact with this medicine? Do not take this medicine with any of the following medications: medicines called MAO Inhibitors like Nardil, Parnate, Marplan, Eldepryl other phenothiazines like trimethobenzamide This medicine may also interact with the following medications: barbiturates like phenobarbital bromocriptine certain antidepressants certain antihistamines used in allergy or cold medicines epinephrine levodopa medicines for sleep medicines for mental problems and psychotic disturbances medicines for movement abnormalities as in Parkinson's disease, or for gastrointestinal problems muscle relaxants prescription pain medicines What if I miss a dose? If you miss a dose, take it as soon as you can. If it is almost time for your next dose, take only that dose. Do not take double or extra doses. Where should I keep my medicine? Keep out of the reach of children. Store at room temperature, between 20 and 25 degrees C (68 and 77 degrees F). Protect from light. Throw away any unused medicine after the expiration date. What should I tell my health care provider before I take this medicine? They need to know if you have any of these conditions: glaucoma high blood pressure or heart disease kidney disease liver disease lung or breathing disease, like asthma prostate trouble pain or difficulty passing urine seizures an unusual or allergic reaction to promethazine or phenothiazines, other medicines, foods, dyes, or preservatives or trying to get breast-feeding What should I watch for while using this medicine? Tell your doctor or health inpatient care manager rn if your symptoms do not start to get better in 1 to 2 days. You may get drowsy or dizzy. Do not drive, use machinery, or do anything that needs mental alertness until you know how this medicine affects you. To reduce the risk of dizzy or fainting spells, do not stand or sit up quickly, especially if you are an older patient. Alcohol may increase dizziness and drowsiness. Avoid alcoholic drinks. Your mouth may get dry. Chewing sugarless gum or sucking hard candy, and drinking plenty of water may help. Contact your doctor if the problem does not go away or is severe. This medicine may cause dry eyes and blurred vision. If you wear contact lenses you may feel some discomfort. Lubricating drops may help. See your eye doctor if the problem does not go away or is severe. This medicine can make you more sensitive to the sun. Keep out of the sun. If you cannot avoid being in the sun, wear protective clothing and use sunscreen. Do not use sun lamps or tanning beds/booths. If you are diabetic, check your blood-sugar levels regularly. You have been given the following additional information: Promethazine Hydrochloride Oral tablet No strenuous activity. (Electronically signed by Oscar Roa MD 01/07/2017 16:20)
== END 2017-01-05 02:31 | disposition home or self-care (01) ==
LOC: ED SRH 22:32
DX: S29.011A Strain of muscle and tendon of front wall of thorax, initial encounter (principal); X50.3XXA Overexertion from repetitive movements, initial encounter; Y93.89 Activity, other specified; Y99.9 Unspecified external cause status; Y92.9 Unspecified place or not applicable; I10 Essential (primary) hypertension; E78.5 Hyperlipidemia, unspecified; J40 Bronchitis, not specified as acute or chronic; Z79.899 Other long term (current) drug therapy; Z95.0 Presence of cardiac pacemaker

== ENCOUNTER → 2017-03-30 | Emergency (ER) | payer OTHER ==
--- NOTE | 2017-03-30 23:23 | DIAGNOSTIC IMAGING REPORT ---
PROCEDURE: XR CHEST 1 VIEW INDICATION: CHEST PAIN TECHNIQUE: Portable AP view (1112 hours). COMPARISON: Compared to radiographs of the chest and left ribs on 01/05/2017 and chest x-ray on 07/19/2013. FINDINGS: Allowing for suboptimal inspiration, lungs are clear. Left subclavian defibrillator is unchanged. Heart and mediastinum are of normal size. Thorax is normal. IMPRESSION: 1. Left subclavian pacemaker/defibrillator. 2. Otherwise negative chest.
--- NOTE | 2017-03-31 05:08 | ED CLINICAL REPORT ---
Clinical Report - Physicians/Mid Levels [facility] [address] [place] [address] 03/30/2017 22:39 Patient: MANNY GAN Time Seen: 2245; initial patient contact. Arrived- By private vehicle. Historian- patient. HISTORY OF PRESENT ILLNESS Chief Complaint: CHEST PAIN. At its maximum, severity described as moderate. When seen in the E.D., severity described as moderate. Modifying factors- worsened by exertion. Not worsened by anything. Not relieved by anything. This started about 2 hours ago and is still present. The patient cannot recall the circumstances at the onset. It is described as pressure and tightness and it is described as located in the central chest area. No radiation. No nausea, vomiting or difficulty breathing. He has experienced diaphoresis. Similar symptoms previously: Many times. Recent medical care: Not recently seen/assessed. REVIEW OF SYSTEMS No fever, chills, pedal edema or calf pain. Anxious. All systems otherwise negative, except as recorded above. PAST HISTORY Myocardial Infarction. Fractured Metacarpal. Hematuria. Coronary Artery Disease. Atypical Chest Pain. Alcohol Intoxication. PTSD. Tetanus Status. Chest Pain. Hyperlipidemia. Hypertension. Narcotic Withdrawal. Immunizations. SURGERIES: Back Surgery. Coronary Angioplasty. Pacemaker. Tonsillectomy. Medications: Lisinopril Oral 10 mg, daily. Omeprazole Oral 40 mg, 2x a day. Vitamin D Oral 2 tabs, daily. Aspirin Oral (Tablet 81 mg) 1 tablet, daily. Atorvastatin Calcium Oral 80 mg, daily. Clopidogrel Bisulfate Oral 75 mg, daily. Coreg Oral 25 mg, 2x a day. FLUoxetine HCl Oral 60mg, daily. Allergies: Ativan. SOCIAL HISTORY Former smoker. Heavy alcohol use. History of drug use: marijuana. ADDITIONAL NOTES The nursing notes have been reviewed. PHYSICAL EXAM Vital Signs: 03/30/2017 22:44 BP: 158/140. HR: 102. RR: 17. O2 saturation: 95%. Temp: 98.9 F. Pain level now: 8/10. Have been reviewed. Hypertensive. Tachycardic. Respiratory rate normal. Temperature normal. Oxygen saturation normal. Appearance: Alert. Oriented X3. Anxious. Eyes: Eyes normal inspection. ENT: Pharynx normal. Neck: Normal inspection. CVS: Normal heart rate and rhythm. Heart sounds normal. Respiratory: No respiratory distress. Breath sounds normal. Skin: Skin warm and dry. Normal skin color. Extremities: No calf tenderness. No lower extremity edema. Neuro: Oriented X 3. LABS, X-RAYS, AND EKG EKG: EKG time: (2245). Normal sinus rhythm. Rate: 97. Normal P waves. Short WIN. Normal ST and T waves. Prolonged QTc (482). EKG unchanged when compared with prior EKG. (). The study has been interpreted contemporaneously by me. The study has been independently viewed by me. Artifact present. Interpretation time: 2245. Chest X-ray: No acute disease. Normal lung markings present. Normal heart size. Mediastinum normal. Great vessels normal. No infiltrate. Pacemaker present. Views: AP. Technique: good. The X-rays were independently viewed by me and interpreted contemporaneously by me. A comparison with prior films reveals that the findings are unchanged. Chest CT: (No PE Atelectasis Healing L 8th rib Fx). Chest CT performed with contrast and without contrast. The study was independently viewed by me and discussed with the radiologist. Prior studies were not available for comparison. Laboratory Tests: UA-Culture if indicated: (DAVID: 03/31/2017 00:01) ( MsgRcvd 03/31/2017 00:19) Final results Test Result Flag Units (Reference) URINE COLOR YELLOW URINE APPEARANCE CLEAR URINE GLUCOSE NEGATIVE (NEGATIVE) URINE BILIRUBIN NEGATIVE (NEGATIVE) URINE KETONE NEGATIVE (NEGATIVE) URINE SPECIFIC GRAVITY >= 1.030 (1.010-1.030) URINE PH 6.0 (5.0-8.0) URINE PROTEIN 1+ (NEGATIVE) URINE UROBILINOGEN 1.0 EU/dL (0.2-1.0) URINE NITRITE NEGATIVE (NEGATIVE) URINE BLOOD NEGATIVE (NEGATIVE) URINE LEUK ESTERASE NEGATIVE (NEGATIVE) URINE RBC 0-1 rbc/hpf (0-1) URINE WBC 0-1 wbc/hpf (0-1) URINE EPITHELIAL CELLS 0-1 EPI/hpf (0-5) URINE BACTERIA NONE SEEN (NONE SEEN) URINE COMMENT CULT NOT INDICATED URINE CULTURES ARE SET-UP BASED ON THE FOLLOWING CRITERIA:POSITIVE NITRITEPOSITIVE LEUKOCYTE ESTERASEGREATER THAN 10 WHITE BLOOD CELLSMODERATE (2+) OR GREATER BACTERIA CPK: (DAVID: 03/31/2017 03:30) ( [facility] 03/31/2017 03:56) Final results Test Result Flag Units (Reference) CPK 204 U/L (24-260) TROPONIN I <0.05 ng/mL (0.00-1.5) TROPONIN REFERENCE RANGE:<0.1 NEGATIVE0.1-1.5 INDETERMINANT>1.5 POSITIVE Urine Drug Screen: (DAVID: 03/31/2017 00:01) ( [facility] 03/31/2017 00:26) Final results Test Result Flag Units (Reference) AMPHETAMINE/METHAMPHETAMINE NEGATIVE (NEGATIVE) BARBITURATE NEGATIVE (NEGATIVE) BENZODIAZEPINE NEGATIVE (NEGATIVE) CANNABINOID POSITIVE H (NEGATIVE) COCAINE NEGATIVE (NEGATIVE) ECSTASY NEGATIVE (NEGATIVE) METHADONE NEGATIVE (NEGATIVE) OPIATE NEGATIVE (NEGATIVE) The urine drug screen is a qualitative screening test fordrug overdose and abuse. All screen results should beconsidered as presumptive.Drugs screened for are as follows:BenzodiazepinesCocaineAmphetamines/MetamphetaminesTHC (Tetrahydrocannabinol)OpiatesBarbituratesEcstasyMethadonePositive results are unconfirmed. For confirmation, notifythe lab for the specimen to be sent to the reference lab.All confirmations must be performed by a differentmethodology.The ingestion of natural herbal and plant productscontaining Ephedra/Ephedra metabolites can produce in urineone or more substances capable of cross reacting withamphetamine/methamphetamine immunoassays. These testsprovide a preliminary result only. A more specificalternative chemical method must be used to obtain aconfirmed analytical result. CBC w Diff: (DAVID: 03/30/2017 22:53) ( [facility] 03/30/2017 23:08) Final results Test Result Flag Units (Reference) WHITE BLOOD COUNT 14.5 H K/uL (4.5-11.5) RED BLOOD COUNT 5.49 M/uL (4.50-5.90) HEMOGLOBIN 15.3 gm/dL (13.5-17.5) HEMATOCRIT 45.9 % (41.0-53.0) MEAN CELL VOLUME 84 fL (80-100) MEAN CORPUSCULAR HGB 28 pg (26-34) MEAN CORPUSCULAR HGB CONC 33 g/dL (31-37) RED CELL DISTRIBUTION WIDTH 15.4 H % (11.6-14.8) PLATELET COUNT 369 K/uL (150-400) LYMPH % 23.6 L % (25-40) MONO % 7.0 % (3-14) GRANULOCYTE % 69.4 % (53-90) [id number]: (DAVID: 03/30/2017 22:53) ( [facility] 03/30/2017 23:16) Final results Test Result Flag Units (Reference) D-DIMER QUANTITATIVE 2.23 H ug/mLFEU (0.27-0.52) The primary value of this quantitative assay relates toits negative predictive value (i.e. exclusion) of pulmonaryembolism/deep vein thrombosis/DIC.Elevated levels of d-dimer may also occur with:, age, cancer, inflammation, liver disease,post-op, infection, hematoma, coronary disease, peripheralarteriopathy, bleeding disorders and thrombolytic treatment.Results should be correlated with other clinical andradiological data.Testing Methodology: Latex Immunoassay BNP: (DAVID: 03/30/2017 22:53) ( [facility] 03/30/2017 23:27) Final results Test Result Flag Units (Reference) B-TYPE NATRIURETIC PEPTIDE 42.8 pg/ml (5-100) Lipase: (DAVID: 03/30/2017 22:53) ( [facility] 03/30/2017 23:18) Final results Test Result Flag Units (Reference) LIPASE 127 U/L (73-393) AMYLASE 53 U/L (25-115) CHEM 13 PANEL: (DAVID: 03/30/2017 22:53) ( MsgRcvd 03/30/2017 23:25) Final results Test Result Flag Units (Reference) GLUCOSE 114 H mg/dL (70-110) BUN 11 mg/dL (7-18) CREATININE 1.0 mg/dL (0.6-1.3) Estimated GFR >60 mL/min Estimated GFR- >60 mL/min Note: Persistent reduction over 3 months in eGFR<60 mL/min/1.73 m2 defines CKD. Patients with eGFR values>=60 mL/min/1.73 m2 may also have CKD if evidence ofpersistent proteinuria. Additional information may be foundat [email or web address].org. SODIUM 141 mmol/L (136-145) POTASSIUM 3.9 mmol/L (3.5-5.1) CHLORIDE 101 mmol/L (98-107) CARBON DIOXIDE 28 mmol/L (21-32) CALCIUM 8.6 mg/dL (8.5-10.1) TOTAL PROTEIN 8.2 g/dL (6.4-8.2) ALBUMIN 3.8 g/dL (3.3-5.0) BILIRUBIN, TOTAL 0.5 mg/dL (0.0-1.0) ALKALINE PHOSPHATASE 109 U/L (46-116) AST (SGOT) 39 H U/L (15-37) ALT (SGPT) 53 U/L (12-78) MAGNESIUM 1.9 mg/dL (1.8-2.4) CPK 222 U/L (24-260) TROPONIN I <0.05 ng/mL (0.00-1.5) TROPONIN REFERENCE RANGE:<0.1 NEGATIVE0.1-1.5 INDETERMINANT>1.5 POSITIVE . PROGRESS AND PROCEDURES Call placed to health care provider call returned 04:51 Dr. King [facility] at [facility]. She accepts the pt for transfer. Consult obtained from cardiology. call returned 04:15 Dr. Dash. Does not feel this is cardiac and no need to transfer pt. Case discussed. Phone consult only. Disposition: Benefits, risks and alternatives to transfer explained to patient. Transferred to [facility]. CLINICAL IMPRESSION Precordial chest pain characterized as "tightness" .12 lead EKG performed. INSTRUCTIONS Follow-up: Blood pressure screening was not performed during this visit because the patient has an active diagnosis of hypertension. (Electronically signed by Arash Hudson Dr. 03/31/2017 7:38)
--- NOTE | 2017-03-31 05:08 | ED ORDER SUMMARY ---
..... Patient: MANNY GAN OrderSheet [facility] VisitID: [id number] [place] [address] 41y, M Registration Date/Time: 03/30/2017 ORDER SHEET Weight: 77.1 kg (stated) Allergies: Ativan GENERAL ORDERS: Chest 1V Urgent (22:51 03/30/2017 Hannah Pires) (Ack 22:56 CHagerty ER Stippler) (23:30 RFay) Cardiac Panel Stat (22:52 03/30/2017 Hannah Pires) (Ack 22:56 CHagerty ER Stippler) (23:01 JQuivey R.N.) BNP Urgent (22:52 03/30/2017 Hannah Pires) (Ack 22:56 CHagerty ER Stippler) (23:01 JQuivey R.N.) D-Dimer Urgent (22:52 03/30/2017 Hannah Pires) (Ack 22:56 CHagerty ER Stippler) (23:01 JQuivey R.N.) Amylase Urgent (22:52 03/30/2017 Hannah Pires) (Ack 22:56 CHagerty ER Stippler) (23:01 JQuivey R.N.) Lipase Urgent (22:52 03/30/2017 Hannah Pires) (Ack 22:56 CHagerty ER Stippler) (23:01 JQuivey R.N.) Urine Drug Screen Urgent (22:52 03/30/2017 Hannah Pires) (Ack 22:56 CHagerty ER Stippler) (23:59 JQuivey R.N.) UA-Culture if indicated Urgent (22:52 03/30/2017 Hannah Pires) (Ack 22:56 CHagerty ER Stippler) (23:59 JQuivey R.N.) EKG - ER Stat (22:52 03/30/2017 Hannah Pires) (22:55 CHagerty ER Stippler) (22:57 JQuivey R.N.) CTA Thorax w Cont (No) (07/23) Urgent (00:38 03/31/2017 Hannah Pires) (Ack 0:41 CHagerty ER Stippler) (1:16 JQuivey R.N.) CPK Urgent (03:21 03/31/2017 Hannah Pires) (Ack 3:26 CHagerty ER Stippler) (3:36 JQuivey R.N.) Troponin-I Urgent (03:21 03/31/2017 Hannah Pires) (Ack 3:26 CHagerty ER Stippler) (3:36 JQuivey R.N.) Troponin-I Urgent (06:04 03/31/2017 Hannah Pires) (Ack 6:10 CHagerty ER Stippler) (7:08 CHagerty ER Stippler) MEDICATION ORDERS: Aspirin PO 325 mg (Do not crush or chew, NOW) (22:52 03/30/2017 Hannah Pires) (22:55 JQuivey R.N.) GI Cocktail RED PO 35 mL with Lidocaine Viscous Mouth/Throat 10 mL, Diphenhydramine Oral 10 mL, Maalox Plus Oral 15 mL (NOW) (01:54 03/31/2017 Hannah Pires) (Ack 2:10 JQuivey R.N.) (2:13 JQuivey R.N.) Acetaminophen PO 1,000 mg (NOW) (02:57 03/31/2017 Hannah Pires) (Ack 3:12 JQuivey R.N.) (3:16 JQuivey R.N.) Nitrostat SL 0.4 mg (Do not crush or chew, NOW) (02:57 03/31/2017 Hannah Pires) (Ack 3:12 JQuivey R.N.) (3:17 JQuivey R.N.) Alprazolam PO 1 mg (NOW) (04:17 03/31/2017 Hannah Pires) (Ack 4:26 JQuivey R.N.) (4:31 JQuivey R.N.) Previously tolerated IV FLUIDS: IV Saline Lock (22:52 03/30/2017 Hannah Pires) (22:56 JQuivey R.N.) Diazepam IV 10 mg (HIGH ALERT MEDICATION, NOW) (23:40 03/30/2017 Hannah Pires) (23:42 SRoberts R.N.) Has tolerated Diazepam in the past Morphine IV 4 mg (HIGH ALERT MEDICATION, NOW) (00:44 03/31/2017 Hannah Pires) (0:47 Ramandeep Torrez) Morphine IV 4 mg (HIGH ALERT MEDICATION, NOW) (05:00 03/31/2017 Hannah Pires) (Ack 5:29 JQuivey R.N.) (5:34 JQuivey R.N.) ORDER SHEET NOTES: [Electronically signed by Hari Guallpa R.N. (07:10 03/31/2017)] [Electronically signed by Arash Hudson Dr. (07:38 03/31/2017)] [Electronically locked/signed by Hari Guallpa R.N. (07:10 03/31/2017)]
--- NOTE | 2017-03-31 05:08 | ED NURSING NOTES ---
Clinical Report - Nurses [facility] [address] [place] [address] 03/30/2017 22:39 Patient: MANNY GAN TRIAGE Triage time 22:44. Acuity: LEVEL 2. Chief Complaint: CHEST PAIN and DISCOMFORT. 22:52. Alert. SEPSIS SCREEN: Sepsis Screen. Negative (no infection suspected/documented). --22:52 Hari Guallpa R.N. 22:44 03/30/17. BP: 158/140. HR: 102. RR: 17. O2 saturation: 95% on room air. Temp: 98.9 F. Pain level now: 05/01. --22:52 Hari Guallpa R.N. Weight: 77.1 kg stated. Height/Length: 65 inches Per Patient. BMI: 28.3. --22:47 Hari Guallpa R.N. Medications Aspirin Oral (Tablet 81 mg) 1 tablet, daily. Atorvastatin Calcium Oral 80 mg, daily. Clopidogrel Bisulfate Oral 75 mg, daily. Coreg Oral 25 mg, 2x a day. FLUoxetine HCl Oral 60mg, daily. --22:49 Hari Guallpa R.N. Lisinopril Oral 10 mg, daily. Omeprazole Oral 40 mg, 2x a day. Vitamin D Oral 2 tabs, daily. --22:49 Hari Guallpa R.N. Allergies Ativan. --22:49 Hari Guallpa R.N. Medication/allergy information source: the patient and patient's family. --22:52 Hari Guallpa R.N. History Arrived by private vehicle. Historian: patient. Accompanied by family. [facility] ([facility]). Onset. (2 hours ago). Treatment SOFTWARE QUALITY SPECIALIST: None. PAST MEDICAL HX: Immunizations: up-to-date. SOCIAL HX: Former smoker, end date 2015. Occasional alcohol use. History of drug use: marijuana. (Daily). FALL RISK ASSESSMENT: Fall risk assessment completed. No fall risk identified. NUTRITIONAL RISK ASSESSMENT: The nutritional risk assessment revealed no deficiencies. FUNCTIONAL ASSESSMENT: Functional assessment: no impairments noted. LEARNING NEEDS ASSESSMENT: The learning needs assessment revealed no barriers. SKIN INTEGRITY ASSESSMENT: Skin integrity risk assessment completed. No skin integrity risk identified. --22:52 Hari Guallpa R.N. PROBLEMS: Myocardial Infarction. Fractured Metacarpal. Hematuria. Coronary Artery Disease. Atypical Chest Pain. Alcohol Intoxication. PTSD. Hyperlipidemia. Hypertension. Narcotic Withdrawal. --22:52 Hari Guallpa R.N. ADDITIONAL SURGERIES: Back Surgery. Coronary Angioplasty. Pacemaker. Tonsillectomy. --22:52 Hari Guallpa R.N. Interventions ID band on patient. To treatment room. --22:52 Hari Guallpa R.N. PHYSICAL ASSESSMENT 22:46. Ambulatory to room. Patient gowned. GENERAL / NEURO / PSYCH: Alert. Oriented X 4. HEENT: Mucous membranes are pink. RESPIRATORY: Respirations not labored. SKIN: Skin is warm and dry. Normal skin turgor. --22:53 Hari Guallpa R.N. 23:26. GENERAL / NEURO / PSYCH: ( patient shaking). SKIN: Skin is diaphoretic. --23:58 Hari Guallpa R.N. 00:38 Less shaking. --00:38 Hari Guallpa R.N. NURSING PROGRESS NOTES 22:45. Head of bed elevated. Two patient identifiers checked. Call light placed in reach. Bed placed in lowest position. Brakes of bed on. --22:47 Hari Guallpa R.N. 22:46. EKG time: (5563). EKG was performed by a tech and shown to the ED physician. --22:46 Hari Guallpa R.N. 22:47. clinical research monitor, pulse oximeter and NIBP monitor placed on patient; monitor alarms on. --22:47 Hari Guallpa R.N. 22:48. Oxygen administered by nasal cannula at 2 liters. --22:53 Hari Guallpa R.N. 22:53 03/30/2017 Site #1 started via IV in the left wrist with an 20g angiocath, with aseptic technique and good blood return; one attempt. Blood drawn: rainbow set. Labeled in the presence of the patient and sent to the lab. Saline lock flushed with 10 mL saline. --22:56 Hari Guallpa R.N. 22:55 03/30/2017 Aspirin PO 325 mg given. Allergies verified and confirmed 5 rights. --22:55 Hari Guallpa R.N. 22:57 03/30/17. BP: 157/101. HR: 95. RR: 18. O2 saturation: 100% on nasal cannula at 2 liters/minute. --22:58 Hari Guallpa R.N. 23:01 Urinal placed on bed rail - pt notified of need for urine sample. --23:02 Hari Guallpa R.N. 23:12. Portable chest x-ray. --23:17 Hari Guallpa R.N. 23:42 03/30/2017 Diazepam (Diazepam) IVP 10 mg given over 1 minute(s) via site #1. Allergies verified, confirmed 5 rights and sedative warning given to the patient. IV patency established. IV site checked: no pain, redness, or swelling. IV flushed thoroughly pre- and post-medication administration. IVP given by RN (Given by jossie Delgadillo). --23:42 Lola Land R.N. 23:43 Patient reports being on a drinking binder for a few days then quit drinking this AM. --23:57 Hari Guallpa R.N. 23:54. Patient ID band checked for patient name and birthdate: patient confirmed. Clean catch urine collected with return of yellow-colored alka-colored clear urine; sample sent to lab for urinalysis and drug screen. Specimen labeled in the presence of the patient. --23:55 Hari Guallpa R.N. 00:37 03/31/17. BP: 108/71. HR: 80. RR: 17. O2 saturation: 96% on nasal cannula at 2 liters/minute. Pain level now: 05/01. --00:38 Hari Guallpa R.N. The patient is calm and resting quietly. RESPIRATORY: No respiratory distress. SKIN: Skin is warm and dry. Skin color within normal limits. --00:38 Hari Guallpa R.N. 00:44 03/31/2017 Site #2 started via IV in the right forearm with an 18g angiocath, with aseptic technique and good blood return; one attempt. Saline lock flushed with 10 mL saline. --00:47 Hari Guallpa R.N. 00:46 03/31/2017 Morphine IVP 4 mg given over 2 minute(s) via site #2. Allergies verified, confirmed 5 rights and sedative warning given to the patient and patient's family. IV patency established. IV site checked: no pain, redness, or swelling. IV flushed thoroughly pre- and post-medication administration. --00:47 Hari Guallpa R.N. 01:03. Patient transported to PR by stretcher with tech. --01:05 Hari Guallpa R.N. 01:15. Patient returned from CT by stretcher with tech. --01:15 Hari Guallpa R.N. 02:13 03/31/2017 GI COCKTAIL RED (Magnesium-Aluminum) PO 35 mL given. Allergies verified and confirmed 5 rights. --02:13 Hari Guallpa R.N. 03:13 03/31/2017 Acetaminophen (APAP) PO 1000 mg given. Allergies verified and confirmed 5 rights. --03:16 Hari Guallpa R.N. 03:16 03/31/2017 Nitrostat SL 0.4 mg given. Allergies verified and confirmed 5 rights. --03:17 Hari Guallpa R.N. 03:12 03/31/17. BP: 136/77. HR: 76. RR: 17. O2 saturation: 100%. Pain level now: 05/01. --03:17 Hari Guallpa R.N. The patient is calm and resting quietly. RESPIRATORY: No respiratory distress. SKIN: Skin is warm and dry. Skin color within normal limits. --03:17 Hari Guallpa R.N. 03:28 03/31/17. BP: 129/87. HR: 74. RR: 17. O2 saturation: 99%. Pain level now: 05/01. --03:35 Hari Guallpa R.N. 03:35. Patient ID band checked for patient name and birthdate: patient confirmed. Blood samples drawn from the right forearm peripheral IV site by nurse ; labeled in presence of the patient and sent to lab: red and green top. Initial blood discarded and additional blood sent to lab. --03:36 Hari Guallpa R.N. 04:31 03/31/2017 Alprazolam PO 1 mg given. Allergies verified, confirmed 5 rights and sedative warning given to the patient. --04:31 Hari Guallpa R.N. 05:34 03/31/2017 Morphine IVP 4 mg given over 2 minute(s) via site #2. Allergies verified and confirmed 5 rights. IV patency established. IV site checked: no pain, redness, or swelling. IV flushed thoroughly pre- and post-medication administration. --05:34 Hari Guallpa R.N. The patient is calm and resting quietly. RESPIRATORY: No respiratory distress. SKIN: Skin is warm and dry. Skin color within normal limits. --05:35 Hari Guallpa R.N. 05:34 03/31/17. BP: 118/95. HR: 65. RR: 16. O2 saturation: 98% on nasal cannula at 2 liters/minute. --05:35 Hari Guallpa R.N. Cardiac rhythm: sinus rhythm. The patient is calm and resting quietly. RESPIRATORY: No respiratory distress. SKIN: Skin is warm and dry. Skin color within normal limits. --06:12 Hari Guallpa R.N. 06:08 03/31/17. BP: 126/67. HR: 60. RR: 16. O2 saturation: 95% on nasal cannula at 2 liters/minute. Pain level now: 11/29. --06:12 Hari Guallpa R.N. 06:12. Patient ID band checked for patient name and birthdate: patient confirmed. Blood samples drawn from the right forearm peripheral IV site with syringe by nurse ; labeled in presence of the patient and sent to lab: red and green top. Initial blood discarded. Line flushed with 10 mL normal saline post blood draw. --06:13 Hari Guallpa R.N. 07:00. The patient is calm and resting quietly. Overall patient status is improved- he states feels better. RESPIRATORY: No respiratory distress. SKIN: Skin is warm and dry. Skin color within normal limits. --07:09 Hari Guallpa R.N. DISPOSITION / DISCHARGE Condition at departure: improved and stable. No learning barriers present. Transferred to [facility]. Transported via ambulance by transport team. Patient's personal items include, Other belongings; items were placed in belongings bag and transported with the patient. He did not have glasses, contacts, dentures or a hearing aid. FALL RISK ASSESSMENT: Fall risk assessment completed. No fall risk identified. --06:37 Hari Guallpa R.N. 06:36 03/31/17. BP: 111/84. HR: 57. RR: 15. O2 saturation: 98% on nasal cannula at 2 liters/minute. Pain level now: 11/29. --06:37 Hari Guallpa R.N. Report was given in person. Report included patient's care, treatment, medications, reviewed medication reconcilliation, and condition (including any recent changes or anticipated changes). All questions were answered. Report was acknowledged and care was transferred. (Tamy CORTEZ [facility]). --06:59 Hari Guallpa R.N. 07:04. Report was given via a phone call. Report included patient's care, treatment, medications, reviewed medication reconcilliation, and condition (including any recent changes or anticipated changes). All questions were answered. Report was acknowledged. (Josee CORTEZ [facility]). --07:08 Hari Guallpa R.N. Departure time: 0700. --07:09 Hari Guallpa R.N. Locked/Released at 03/31/2017 7:10 by Hari Guallpa R.N.
--- NOTE | 2017-03-31 05:08 | ED ORDER SUMMARY ---
..... Patient: MANNY GAN OrderSheet [facility] VisitID: [id number] [place] [address] 41y, M Registration Date/Time: 03/30/2017 ORDER SHEET Weight: 77.1 kg (stated) Allergies: Ativan GENERAL ORDERS: Chest 1V Urgent (22:51 03/30/2017 Hannah Pires) (Ack 22:56 CHagerty ER Master Fire Control Technician) (23:30 RFay) Cardiac Panel Stat (22:52 03/30/2017 Hannah Pires) (Ack 22:56 CHagerty ER Master Fire Control Technician) (23:01 JQuivey R.N.) BNP Urgent (22:52 03/30/2017 Hannah Pires) (Ack 22:56 CHagerty ER Master Fire Control Technician) (23:01 JQuivey R.N.) D-Dimer Urgent (22:52 03/30/2017 Hannah Pires) (Ack 22:56 CHagerty ER Master Fire Control Technician) (23:01 JQuivey R.N.) Amylase Urgent (22:52 03/30/2017 Hannah Pires) (Ack 22:56 CHagerty ER Master Fire Control Technician) (23:01 JQuivey R.N.) Lipase Urgent (22:52 03/30/2017 Hannah Pires) (Ack 22:56 CHagerty ER Master Fire Control Technician) (23:01 JQuivey R.N.) Urine Drug Screen Urgent (22:52 03/30/2017 Hannah Pires) (Ack 22:56 CHagerty ER Master Fire Control Technician) (23:59 JQuivey R.N.) UA-Culture if indicated Urgent (22:52 03/30/2017 Hannah Pires) (Ack 22:56 CHagerty ER Master Fire Control Technician) (23:59 JQuivey R.N.) EKG - ER Stat (22:52 03/30/2017 Hannah Pires) (22:55 CHagerty ER Master Fire Control Technician) (22:57 JQuivey R.N.) CTA Thorax w Cont (No) (07/23) Urgent (00:38 03/31/2017 Hannah Pires) (Ack 0:41 CHagerty ER Master Fire Control Technician) (1:16 JQuivey R.N.) CPK Urgent (03:21 03/31/2017 Hannah Pires) (Ack 3:26 CHagerty ER Master Fire Control Technician) (3:36 JQuivey R.N.) Troponin-I Urgent (03:21 03/31/2017 Hannah Pires) (Ack 3:26 CHagerty ER Master Fire Control Technician) (3:36 JQuivey R.N.) Troponin-I Urgent (06:04 03/31/2017 Hannah Pires) (Ack 6:10 CHagerty ER Master Fire Control Technician) (7:08 CHagerty ER Master Fire Control Technician) MEDICATION ORDERS: Aspirin PO 325 mg (Do not crush or chew, NOW) (22:52 03/30/2017 Hannah Pires) (22:55 JQuivey R.N.) GI Cocktail RED PO 35 mL with Lidocaine Viscous Mouth/Throat 10 mL, Diphenhydramine Oral 10 mL, Maalox Plus Oral 15 mL (NOW) (01:54 03/31/2017 Hannah Pires) (Ack 2:10 JQuivey R.N.) (2:13 JQuivey R.N.) Acetaminophen PO 1,000 mg (NOW) (02:57 03/31/2017 Hannah Pires) (Ack 3:12 JQuivey R.N.) (3:16 JQuivey R.N.) Nitrostat SL 0.4 mg (Do not crush or chew, NOW) (02:57 03/31/2017 Hannah Pires) (Ack 3:12 JQuivey R.N.) (3:17 JQuivey R.N.) Alprazolam PO 1 mg (NOW) (04:17 03/31/2017 Hannah Pires) (Ack 4:26 JQuivey R.N.) (4:31 JQuivey R.N.) Previously tolerated IV FLUIDS: IV Saline Lock (22:52 03/30/2017 Hannah Pires) (22:56 JQuivey R.N.) Diazepam IV 10 mg (HIGH ALERT MEDICATION, NOW) (23:40 03/30/2017 Hannah Pires) (23:42 SRoberts R.N.) Has tolerated Diazepam in the past Morphine IV 4 mg (HIGH ALERT MEDICATION, NOW) (00:44 03/31/2017 Hannah Pires) (0:47 Ramandeep Torrez) Morphine IV 4 mg (HIGH ALERT MEDICATION, NOW) (05:00 03/31/2017 Hannah Pires) (Ack 5:29 JQuivey R.N.) (5:34 JQuivey R.N.) ORDER SHEET NOTES: [Electronically signed by Hari Guallpa R.N. (07:10 03/31/2017)] [Electronically signed by Arash Hudson Dr. (07:38 03/31/2017)] [Electronically locked/signed by Hari Guallpa R.N. (07:10 03/31/2017)]
--- NOTE | 2017-03-31 05:08 | ED NURSING NOTES ---
Clinical Report - Nurses [facility] [address] [place] [address] 03/30/2017 22:39 Patient: MANNY GAN TRIAGE Triage time 22:44. Acuity: LEVEL 2. Chief Complaint: CHEST PAIN and DISCOMFORT. 22:52. Alert. SEPSIS SCREEN: Sepsis Screen. Negative (no infection suspected/documented). --22:52 Hari Guallpa R.N. 22:44 03/30/17. BP: 158/140. HR: 102. RR: 17. O2 saturation: 95% on room air. Temp: 98.9 F. Pain level now: 05/01. --22:52 Hari Guallpa R.N. Weight: 77.1 kg stated. Height/Length: 65 inches Per Patient. BMI: 28.3. --22:47 Hari Guallpa R.N. Medications Aspirin Oral (Tablet 81 mg) 1 tablet, daily. Atorvastatin Calcium Oral 80 mg, daily. Clopidogrel Bisulfate Oral 75 mg, daily. Coreg Oral 25 mg, 2x a day. FLUoxetine HCl Oral 60mg, daily. --22:49 Hari Guallpa R.N. Lisinopril Oral 10 mg, daily. Omeprazole Oral 40 mg, 2x a day. Vitamin D Oral 2 tabs, daily. --22:49 Hari Guallpa R.N. Allergies Ativan. --22:49 Hari Guallpa R.N. Medication/allergy information source: the patient and patient's family. --22:52 Hari Guallpa R.N. History Arrived by private vehicle. Historian: patient. Accompanied by family. [facility] ([facility]). Onset. (2 hours ago). Treatment ONLINE ADVERTISING DIRECTOR: None. PAST MEDICAL HX: Immunizations: up-to-date. SOCIAL HX: Former smoker, end date 2015. Occasional alcohol use. History of drug use: marijuana. (Daily). FALL RISK ASSESSMENT: Fall risk assessment completed. No fall risk identified. NUTRITIONAL RISK ASSESSMENT: The nutritional risk assessment revealed no deficiencies. FUNCTIONAL ASSESSMENT: Functional assessment: no impairments noted. LEARNING NEEDS ASSESSMENT: The learning needs assessment revealed no barriers. SKIN INTEGRITY ASSESSMENT: Skin integrity risk assessment completed. No skin integrity risk identified. --22:52 Hari Guallpa R.N. PROBLEMS: Myocardial Infarction. Fractured Metacarpal. Hematuria. Coronary Artery Disease. Atypical Chest Pain. Alcohol Intoxication. PTSD. Hyperlipidemia. Hypertension. Narcotic Withdrawal. --22:52 Hari Guallpa R.N. ADDITIONAL SURGERIES: Back Surgery. Coronary Angioplasty. Pacemaker. Tonsillectomy. --22:52 Hari Guallpa R.N. Interventions ID band on patient. To treatment room. --22:52 Hari Guallpa R.N. PHYSICAL ASSESSMENT 22:46. Ambulatory to room. Patient gowned. GENERAL / NEURO / PSYCH: Alert. Oriented X 4. HEENT: Mucous membranes are pink. RESPIRATORY: Respirations not labored. SKIN: Skin is warm and dry. Normal skin turgor. --22:53 Hari Guallpa R.N. 23:26. GENERAL / NEURO / PSYCH: ( patient shaking). SKIN: Skin is diaphoretic. --23:58 Hari Guallpa R.N. 00:38 Less shaking. --00:38 Hari Guallpa R.N. NURSING PROGRESS NOTES 22:45. Head of bed elevated. Two patient identifiers checked. Call light placed in reach. Bed placed in lowest position. Brakes of bed on. --22:47 Hari Guallpa R.N. 22:46. EKG time: (4117). EKG was performed by a tech and shown to the ED physician. --22:46 Hari Guallpa R.N. 22:47. monitor and storage bin tender, pulse oximeter and NIBP monitor placed on patient; monitor alarms on. --22:47 Hari Guallpa R.N. 22:48. Oxygen administered by nasal cannula at 2 liters. --22:53 Hari Guallpa R.N. 22:53 03/30/2017 Site #1 started via IV in the left wrist with an 20g angiocath, with aseptic technique and good blood return; one attempt. Blood drawn: rainbow set. Labeled in the presence of the patient and sent to the lab. Saline lock flushed with 10 mL saline. --22:56 Hari Guallpa R.N. 22:55 03/30/2017 Aspirin PO 325 mg given. Allergies verified and confirmed 5 rights. --22:55 Hari Guallpa R.N. 22:57 03/30/17. BP: 157/101. HR: 95. RR: 18. O2 saturation: 100% on nasal cannula at 2 liters/minute. --22:58 Hari Guallpa R.N. 23:01 Urinal placed on bed rail - pt notified of need for urine sample. --23:02 Hari Guallpa R.N. 23:12. Portable chest x-ray. --23:17 Hari Guallpa R.N. 23:42 03/30/2017 Diazepam (Diazepam) IVP 10 mg given over 1 minute(s) via site #1. Allergies verified, confirmed 5 rights and sedative warning given to the patient. IV patency established. IV site checked: no pain, redness, or swelling. IV flushed thoroughly pre- and post-medication administration. IVP given by RN (Given by jossie Delgadillo). --23:42 Lola Land R.N. 23:43 Patient reports being on a drinking binder for a few days then quit drinking this AM. --23:57 Hari Guallpa R.N. 23:54. Patient ID band checked for patient name and birthdate: patient confirmed. Clean catch urine collected with return of yellow-colored alka-colored clear urine; sample sent to lab for urinalysis and drug screen. Specimen labeled in the presence of the patient. --23:55 Hari Guallpa R.N. 00:37 03/31/17. BP: 108/71. HR: 80. RR: 17. O2 saturation: 96% on nasal cannula at 2 liters/minute. Pain level now: 05/01. --00:38 Hari Guallpa R.N. The patient is calm and resting quietly. RESPIRATORY: No respiratory distress. SKIN: Skin is warm and dry. Skin color within normal limits. --00:38 Hari Guallpa R.N. 00:44 03/31/2017 Site #2 started via IV in the right forearm with an 18g angiocath, with aseptic technique and good blood return; one attempt. Saline lock flushed with 10 mL saline. --00:47 Hari Guallpa R.N. 00:46 03/31/2017 Morphine IVP 4 mg given over 2 minute(s) via site #2. Allergies verified, confirmed 5 rights and sedative warning given to the patient and patient's family. IV patency established. IV site checked: no pain, redness, or swelling. IV flushed thoroughly pre- and post-medication administration. --00:47 Hari Guallpa R.N. 01:03. Patient transported to [place] by stretcher with tech. --01:05 Hari Guallpa R.N. 01:15. Patient returned from CT by stretcher with tech. --01:15 Hari Guallpa R.N. 02:13 03/31/2017 GI COCKTAIL RED (Magnesium-Aluminum) PO 35 mL given. Allergies verified and confirmed 5 rights. --02:13 Hari Guallpa R.N. 03:13 03/31/2017 Acetaminophen (APAP) PO 1000 mg given. Allergies verified and confirmed 5 rights. --03:16 Hari Guallpa R.N. 03:16 03/31/2017 Nitrostat SL 0.4 mg given. Allergies verified and confirmed 5 rights. --03:17 Hari Guallpa R.N. 03:12 03/31/17. BP: 136/77. HR: 76. RR: 17. O2 saturation: 100%. Pain level now: 05/01. --03:17 Hari Guallpa R.N. The patient is calm and resting quietly. RESPIRATORY: No respiratory distress. SKIN: Skin is warm and dry. Skin color within normal limits. --03:17 Hari Guallpa R.N. 03:28 03/31/17. BP: 129/87. HR: 74. RR: 17. O2 saturation: 99%. Pain level now: 05/01. --03:35 Hari Guallpa R.N. 03:35. Patient ID band checked for patient name and birthdate: patient confirmed. Blood samples drawn from the right forearm peripheral IV site by nurse ; labeled in presence of the patient and sent to lab: red and green top. Initial blood discarded and additional blood sent to lab. --03:36 Hari Guallpa R.N. 04:31 03/31/2017 Alprazolam PO 1 mg given. Allergies verified, confirmed 5 rights and sedative warning given to the patient. --04:31 Hari Guallpa R.N. 05:34 03/31/2017 Morphine IVP 4 mg given over 2 minute(s) via site #2. Allergies verified and confirmed 5 rights. IV patency established. IV site checked: no pain, redness, or swelling. IV flushed thoroughly pre- and post-medication administration. --05:34 Hari Guallpa R.N. The patient is calm and resting quietly. RESPIRATORY: No respiratory distress. SKIN: Skin is warm and dry. Skin color within normal limits. --05:35 Hari Guallpa R.N. 05:34 03/31/17. BP: 118/95. HR: 65. RR: 16. O2 saturation: 98% on nasal cannula at 2 liters/minute. --05:35 Hari Guallpa R.N. Cardiac rhythm: sinus rhythm. The patient is calm and resting quietly. RESPIRATORY: No respiratory distress. SKIN: Skin is warm and dry. Skin color within normal limits. --06:12 Hari Guallpa R.N. 06:08 03/31/17. BP: 126/67. HR: 60. RR: 16. O2 saturation: 95% on nasal cannula at 2 liters/minute. Pain level now: 11/29. --06:12 Hari Guallpa R.N. 06:12. Patient ID band checked for patient name and birthdate: patient confirmed. Blood samples drawn from the right forearm peripheral IV site with syringe by nurse ; labeled in presence of the patient and sent to lab: red and green top. Initial blood discarded. Line flushed with 10 mL normal saline post blood draw. --06:13 Hrai Guallpa R.N. 07:00. The patient is calm and resting quietly. Overall patient status is improved- he states feels better. RESPIRATORY: No respiratory distress. SKIN: Skin is warm and dry. Skin color within normal limits. --07:09 Hari Guallpa R.N. DISPOSITION / DISCHARGE Condition at departure: improved and stable. No learning barriers present. Transferred to [facility]. Transported via ambulance by transport team. Patient's personal items include, Other belongings; items were placed in belongings bag and transported with the patient. He did not have glasses, contacts, dentures or a hearing aid. FALL RISK ASSESSMENT: Fall risk assessment completed. No fall risk identified. --06:37 Hari Guallpa R.N. 06:36 03/31/17. BP: 111/84. HR: 57. RR: 15. O2 saturation: 98% on nasal cannula at 2 liters/minute. Pain level now: 11/29. --06:37 Hari Guallpa R.N. Report was given in person. Report included patient's care, treatment, medications, reviewed medication reconcilliation, and condition (including any recent changes or anticipated changes). All questions were answered. Report was acknowledged and care was transferred. (Tamy CORTEZ [facility]). --06:59 Hari Guallpa R.N. 07:04. Report was given via a phone call. Report included patient's care, treatment, medications, reviewed medication reconcilliation, and condition (including any recent changes or anticipated changes). All questions were answered. Report was acknowledged. (Josee CORTEZ [facility]). --07:08 Hari Guallpa R.N. Departure time: 0700. --07:09 Hari Guallpa R.N. Locked/Released at 03/31/2017 7:10 by Hari Guallpa R.N.
--- NOTE | 2017-03-31 05:08 | ED CLINICAL REPORT ---
Clinical Report - Physicians/Mid Levels [facility] [address] [place] [address] 03/30/2017 22:39 Patient: MANNY GAN Time Seen: 2245; initial patient contact. Arrived- By private vehicle. Historian- patient. HISTORY OF PRESENT ILLNESS Chief Complaint: CHEST PAIN. At its maximum, severity described as moderate. When seen in the E.D., severity described as moderate. Modifying factors- worsened by exertion. Not worsened by anything. Not relieved by anything. This started about 2 hours ago and is still present. The patient cannot recall the circumstances at the onset. It is described as pressure and tightness and it is described as located in the central chest area. No radiation. No nausea, vomiting or difficulty breathing. He has experienced diaphoresis. Similar symptoms previously: Many times. Recent medical care: Not recently seen/assessed. REVIEW OF SYSTEMS No fever, chills, pedal edema or calf pain. Anxious. All systems otherwise negative, except as recorded above. PAST HISTORY Myocardial Infarction. Fractured Metacarpal. Hematuria. Coronary Artery Disease. Atypical Chest Pain. Alcohol Intoxication. PTSD. Tetanus Status. Chest Pain. Hyperlipidemia. Hypertension. Narcotic Withdrawal. Immunizations. SURGERIES: Back Surgery. Coronary Angioplasty. Pacemaker. Tonsillectomy. Medications: Lisinopril Oral 10 mg, daily. Omeprazole Oral 40 mg, 2x a day. Vitamin D Oral 2 tabs, daily. Aspirin Oral (Tablet 81 mg) 1 tablet, daily. Atorvastatin Calcium Oral 80 mg, daily. Clopidogrel Bisulfate Oral 75 mg, daily. Coreg Oral 25 mg, 2x a day. FLUoxetine HCl Oral 60mg, daily. Allergies: Ativan. SOCIAL HISTORY Former smoker. Heavy alcohol use. History of drug use: marijuana. ADDITIONAL NOTES The nursing notes have been reviewed. PHYSICAL EXAM Vital Signs: 03/30/2017 22:44 BP: 158/140. HR: 102. RR: 17. O2 saturation: 95%. Temp: 98.9 F. Pain level now: 8/10. Have been reviewed. Hypertensive. Tachycardic. Respiratory rate normal. Temperature normal. Oxygen saturation normal. Appearance: Alert. Oriented X3. Anxious. Eyes: Eyes normal inspection. ENT: Pharynx normal. Neck: Normal inspection. CVS: Normal heart rate and rhythm. Heart sounds normal. Respiratory: No respiratory distress. Breath sounds normal. Skin: Skin warm and dry. Normal skin color. Extremities: No calf tenderness. No lower extremity edema. Neuro: Oriented X 3. LABS, X-RAYS, AND EKG EKG: EKG time: (2245). Normal sinus rhythm. Rate: 97. Normal P waves. Short WIN. Normal ST and T waves. Prolonged QTc (482). EKG unchanged when compared with prior EKG. (). The study has been interpreted contemporaneously by me. The study has been independently viewed by me. Artifact present. Interpretation time: 2245. Chest X-ray: No acute disease. Normal lung markings present. Normal heart size. Mediastinum normal. Great vessels normal. No infiltrate. Pacemaker present. Views: AP. Technique: good. The X-rays were independently viewed by me and interpreted contemporaneously by me. A comparison with prior films reveals that the findings are unchanged. Chest CT: (No PE Atelectasis Healing L 8th rib Fx). Chest CT performed with contrast and without contrast. The study was independently viewed by me and discussed with the radiologist. Prior studies were not available for comparison. Laboratory Tests: UA-Culture if indicated: (DAVID: 03/31/2017 00:01) ( MsgRcvd 03/31/2017 00:19) Final results Test Result Flag Units (Reference) URINE COLOR YELLOW URINE APPEARANCE CLEAR URINE GLUCOSE NEGATIVE (NEGATIVE) URINE BILIRUBIN NEGATIVE (NEGATIVE) URINE KETONE NEGATIVE (NEGATIVE) URINE SPECIFIC GRAVITY >= 1.030 (1.010-1.030) URINE PH 6.0 (5.0-8.0) URINE PROTEIN 1+ (NEGATIVE) URINE UROBILINOGEN 1.0 EU/dL (0.2-1.0) URINE NITRITE NEGATIVE (NEGATIVE) URINE BLOOD NEGATIVE (NEGATIVE) URINE LEUK ESTERASE NEGATIVE (NEGATIVE) URINE RBC 0-1 rbc/hpf (0-1) URINE WBC 0-1 wbc/hpf (0-1) URINE EPITHELIAL CELLS 0-1 EPI/hpf (0-5) URINE BACTERIA NONE SEEN (NONE SEEN) URINE COMMENT CULT NOT INDICATED URINE CULTURES ARE SET-UP BASED ON THE FOLLOWING CRITERIA:POSITIVE NITRITEPOSITIVE LEUKOCYTE ESTERASEGREATER THAN 10 WHITE BLOOD CELLSMODERATE (2+) OR GREATER BACTERIA CPK: (DAVID: 03/31/2017 03:30) ( [facility] 03/31/2017 03:56) Final results Test Result Flag Units (Reference) CPK 204 U/L (24-260) TROPONIN I <0.05 ng/mL (0.00-1.5) TROPONIN REFERENCE RANGE:<0.1 NEGATIVE0.1-1.5 INDETERMINANT>1.5 POSITIVE Urine Drug Screen: (DAVID: 03/31/2017 00:01) ( [facility] 03/31/2017 00:26) Final results Test Result Flag Units (Reference) AMPHETAMINE/METHAMPHETAMINE NEGATIVE (NEGATIVE) BARBITURATE NEGATIVE (NEGATIVE) BENZODIAZEPINE NEGATIVE (NEGATIVE) CANNABINOID POSITIVE H (NEGATIVE) COCAINE NEGATIVE (NEGATIVE) ECSTASY NEGATIVE (NEGATIVE) METHADONE NEGATIVE (NEGATIVE) OPIATE NEGATIVE (NEGATIVE) The urine drug screen is a qualitative screening test fordrug overdose and abuse. All screen results should beconsidered as presumptive.Drugs screened for are as follows:BenzodiazepinesCocaineAmphetamines/MetamphetaminesTHC (Tetrahydrocannabinol)OpiatesBarbituratesEcstasyMethadonePositive results are unconfirmed. For confirmation, notifythe lab for the specimen to be sent to the reference lab.All confirmations must be performed by a differentmethodology.The ingestion of natural herbal and plant productscontaining Ephedra/Ephedra metabolites can produce in urineone or more substances capable of cross reacting withamphetamine/methamphetamine immunoassays. These testsprovide a preliminary result only. A more specificalternative chemical method must be used to obtain aconfirmed analytical result. CBC w Diff: (ADVID: 03/30/2017 22:53) ( [facility] 03/30/2017 23:08) Final results Test Result Flag Units (Reference) WHITE BLOOD COUNT 14.5 H K/uL (4.5-11.5) RED BLOOD COUNT 5.49 M/uL (4.50-5.90) HEMOGLOBIN 15.3 gm/dL (13.5-17.5) HEMATOCRIT 45.9 % (41.0-53.0) MEAN CELL VOLUME 84 fL (80-100) MEAN CORPUSCULAR HGB 28 pg (26-34) MEAN CORPUSCULAR HGB CONC 33 g/dL (31-37) RED CELL DISTRIBUTION WIDTH 15.4 H % (11.6-14.8) PLATELET COUNT 369 K/uL (150-400) LYMPH % 23.6 L % (25-40) MONO % 7.0 % (3-14) GRANULOCYTE % 69.4 % (53-90) [id number]: (DAVID: 03/30/2017 22:53) ( [facility] 03/30/2017 23:16) Final results Test Result Flag Units (Reference) D-DIMER QUANTITATIVE 2.23 H ug/mLFEU (0.27-0.52) The primary value of this quantitative assay relates toits negative predictive value (i.e. exclusion) of pulmonaryembolism/deep vein thrombosis/DIC.Elevated levels of d-dimer may also occur with:, age, cancer, inflammation, liver disease,post-op, infection, hematoma, coronary disease, peripheralarteriopathy, bleeding disorders and thrombolytic treatment.Results should be correlated with other clinical andradiological data.Testing Methodology: Latex Immunoassay BNP: (DAVID: 03/30/2017 22:53) ( [facility] 03/30/2017 23:27) Final results Test Result Flag Units (Reference) B-TYPE NATRIURETIC PEPTIDE 42.8 pg/ml (5-100) Lipase: (DAVID: 03/30/2017 22:53) ( [facility] 03/30/2017 23:18) Final results Test Result Flag Units (Reference) LIPASE 127 U/L (73-393) AMYLASE 53 U/L (25-115) CHEM 13 PANEL: (DAVID: 03/30/2017 22:53) ( MsgRcvd 03/30/2017 23:25) Final results Test Result Flag Units (Reference) GLUCOSE 114 H mg/dL (70-110) BUN 11 mg/dL (7-18) CREATININE 1.0 mg/dL (0.6-1.3) Estimated GFR >60 mL/min Estimated GFR- >60 mL/min Note: Persistent reduction over 3 months in eGFR<60 mL/min/1.73 m2 defines CKD. Patients with eGFR values>=60 mL/min/1.73 m2 may also have CKD if evidence ofpersistent proteinuria. Additional information may be foundat www.kidney.org. SODIUM 141 mmol/L (136-145) POTASSIUM 3.9 mmol/L (3.5-5.1) CHLORIDE 101 mmol/L (98-107) CARBON DIOXIDE 28 mmol/L (21-32) CALCIUM 8.6 mg/dL (8.5-10.1) TOTAL PROTEIN 8.2 g/dL (6.4-8.2) ALBUMIN 3.8 g/dL (3.3-5.0) BILIRUBIN, TOTAL 0.5 mg/dL (0.0-1.0) ALKALINE PHOSPHATASE 109 U/L (46-116) AST (SGOT) 39 H U/L (15-37) ALT (SGPT) 53 U/L (12-78) MAGNESIUM 1.9 mg/dL (1.8-2.4) CPK 222 U/L (24-260) TROPONIN I <0.05 ng/mL (0.00-1.5) TROPONIN REFERENCE RANGE:<0.1 NEGATIVE0.1-1.5 INDETERMINANT>1.5 POSITIVE . PROGRESS AND PROCEDURES Call placed to health care provider call returned 04:51 Dr. King [facility] at [facility]. She accepts the pt for transfer. Consult obtained from cardiology. call returned 04:15 Dr. Dash. Does not feel this is cardiac and no need to transfer pt. Case discussed. Phone consult only. Disposition: Benefits, risks and alternatives to transfer explained to patient. Transferred to [facility]. CLINICAL IMPRESSION Precordial chest pain characterized as "tightness" .12 lead EKG performed. INSTRUCTIONS Follow-up: Blood pressure screening was not performed during this visit because the patient has an active diagnosis of hypertension. (Electronically signed by Arash Hudson Dr. 03/31/2017 7:38)
--- NOTE | 2017-03-31 07:26 | DIAGNOSTIC IMAGING REPORT ---
PROCEDURE: CTA THORAX WITH CONTRAST INDICATION: SHORTNESS OF BREATH TECHNIQUE: 85 ml of Isovue 370 was injected intravenously and axial images were obtained of the chest with 3D sagittal and coronal MIP reconstructions. COMPARISON: None. FINDINGS: Normal opacification of the pulmonary arterial tree without filling defect. Main pulmonary outflow tract is dilated measuring 3.7 cm in diameter. Thoracic aorta is normal caliber without atherosclerotic calcification. The great vessels demonstrate a normal branching pattern. There is a single lead left- sided transvenous pacemaker. Heart size is normal. No pericardial effusion. There is LAD stent versus very coarse LAD calcification. No adenopathy or mediastinal masses. The esophagus is normal in caliber without hiatal hernia. The thyroid gland is normal. Mild dependent ground-glass opacities. Several 3-4 mm ground-glass lung nodules scattered in the right lung. The airway is patent and branches normally. No pleural effusions or pneumothorax. Healing left posterolateral eighth rib fracture. The images obtained of the upper abdomen are normal. IMPRESSION: 1. No pulmonary embolus. 2. Prominent central pulmonary outflow tract suggestive of pulmonary artery hypertension. 3. Lead pacemaker and LAD stent/calcification. 4. Preliminary report by Dr. Antonietta West of [facility] radiology.
--- NOTE | 2017-03-31 07:38 | ED DISCHARGE INSTRUCTIONS ---
Patient: MANNY GAN General Instructions [facility] VisitID: [id number] [address] [place] [address] 41y, M Registration Date/Time: 03/30/2017 Precordial chest pain characterized as "tightness" .12 lead EKG performed. INSTRUCTIONS Follow-up: Blood pressure screening was not performed during this visit because the patient has an active diagnosis of hypertension. (Electronically signed by Arash Hudson Dr. 03/31/2017 7:38)
--- NOTE | 2017-03-31 07:38 | ED MED RECONCILIATION SUMMARY ---
Patient: MANNY GAN Medication Reconciliation Report [facility] VisitID: [id number] [address] [place] [address] 41y, M Registration Date/Time: 03/30/2017 Weight: 77.1 kg Height/Length: 65 in. BMI: 28.3 ALLERGIES: Ativan The patient's Home Medications are listed below: THE FOLLOWING MEDICATIONS NEED TO BE RECONCILED: Aspirin Oral (81 mg) 1 tablet, daily Atorvastatin Calcium Oral 80 mg, daily Clopidogrel Bisulfate Oral 75 mg, daily Coreg Oral 25 mg, 2x a day FLUoxetine HCl Oral 60mg, daily Lisinopril Oral 10 mg, daily Omeprazole Oral 40 mg, 2x a day Vitamin D Oral 2 tabs, daily The source(s) of the original Home Medication information: patient's family member patient The following Medications were given to the patient in the Emergency Department: Aspirin [PO] PO 325 mg, administered: 03/30/2017 10:55:00 PM Diazepam [IVP] IVP 10 mg, administered: 03/30/2017 11:42:00 PM Morphine [IVP] IVP 4 mg, administered: 03/31/2017 12:46:00 AM GI COCKTAIL RED [PO] PO 35 mL, administered: 03/31/2017 2:13:00 AM Acetaminophen [PO] PO 1000 mg, administered: 03/31/2017 3:13:00 AM Nitrostat [SL] SL 0.4 mg, administered: 03/31/2017 3:16:00 AM Alprazolam [PO] PO 1 mg, administered: 03/31/2017 4:31:00 AM Morphine [IVP] IVP 4 mg, administered: 03/31/2017 5:34:00 AM The following Medications were prescribed to the patient: None.
--- NOTE | 2017-03-31 07:38 | ED MAR SUMMARY ---
..... Medication Administration Record [facility] [address] [place] [address] Patient: MANNY GAN Visit ID: [id number] 41y, M Weight: 77.1 kg Height/Length: 65 in BMI: 28.3 ALLERGIES: Ativan Given 22:55 03/30/2017 Hari Guallpa R.N. Medication Administered: ASPIRIN [PO], Dose: 325 mg PO. Medication Ordered: Aspirin PO 325 mg (Do not crush or chew, NOW). Given 23:42 03/30/2017 Lola Land R.N. Medication Administered: DIAZEPAM [IVP] (DIAZEPAM), Dose: 10 mg IVP over 1 minute(s), Site: #1 left wrist. Medication Ordered: Diazepam IV 10 mg (HIGH ALERT MEDICATION, NOW). Given 00:46 03/31/2017 Hari Guallpa R.N. Medication Administered: MORPHINE [IVP], Dose: 4 mg IVP over 2 minute(s), Site: #2 right forearm. Medication Ordered: Morphine IV 4 mg (HIGH ALERT MEDICATION, NOW). Given 02:13 03/31/2017 Hari Guallpa R.N. Medication Administered: GI COCKTAIL RED [PO] (MAGNESIUM-ALUMINUM), Dose: 35 mL PO. Medication Ordered: GI Cocktail RED PO 35 mL with Lidocaine Viscous Mouth/Throat 10 mL, Diphenhydramine Oral 10 mL, Maalox Plus Oral 15 mL (NOW). Given 03:13 03/31/2017 Hari Guallpa R.N. Medication Administered: ACETAMINOPHEN [PO] (APAP), Dose: 1000 mg PO. Medication Ordered: Acetaminophen PO 1,000 mg (NOW). Given 03:16 03/31/2017 Hari Guallpa R.N. Medication Administered: NITROSTAT [SL], Dose: 0.4 mg SL. Medication Ordered: Nitrostat SL 0.4 mg (Do not crush or chew, NOW). Given 04:31 03/31/2017 Hari Guallpa R.N. Medication Administered: ALPRAZOLAM [PO], Dose: 1 mg PO. Medication Ordered: Alprazolam PO 1 mg (NOW). Given 05:34 03/31/2017 Hari Guallpa R.N. Medication Administered: MORPHINE [IVP], Dose: 4 mg IVP over 2 minute(s), Site: #2 right forearm. Medication Ordered: Morphine IV 4 mg (HIGH ALERT MEDICATION, NOW).
--- NOTE | 2017-03-31 07:38 | ED MED RECONCILIATION SUMMARY ---
Patient: MANNY GAN Medication Reconciliation Report [facility] VisitID: [id number] [address] [place] [address] 41y, M Registration Date/Time: 03/30/2017 Weight: 77.1 kg Height/Length: 65 in. BMI: 28.3 ALLERGIES: Ativan The patient's Home Medications are listed below: THE FOLLOWING MEDICATIONS NEED TO BE RECONCILED: Aspirin Oral (81 mg) 1 tablet, daily Atorvastatin Calcium Oral 80 mg, daily Clopidogrel Bisulfate Oral 75 mg, daily Coreg Oral 25 mg, 2x a day FLUoxetine HCl Oral 60mg, daily Lisinopril Oral 10 mg, daily Omeprazole Oral 40 mg, 2x a day Vitamin D Oral 2 tabs, daily The source(s) of the original Home Medication information: patient's family member patient The following Medications were given to the patient in the Emergency Department: Aspirin [PO] PO 325 mg, administered: 03/30/2017 10:55:00 PM Diazepam [IVP] IVP 10 mg, administered: 03/30/2017 11:42:00 PM Morphine [IVP] IVP 4 mg, administered: 03/31/2017 12:46:00 AM GI COCKTAIL RED [PO] PO 35 mL, administered: 03/31/2017 2:13:00 AM Acetaminophen [PO] PO 1000 mg, administered: 03/31/2017 3:13:00 AM Nitrostat [SL] SL 0.4 mg, administered: 03/31/2017 3:16:00 AM Alprazolam [PO] PO 1 mg, administered: 03/31/2017 4:31:00 AM Morphine [IVP] IVP 4 mg, administered: 03/31/2017 5:34:00 AM The following Medications were prescribed to the patient: None.
--- NOTE | 2017-03-31 07:38 | ED DISCHARGE INSTRUCTIONS ---
Patient: MANNY GAN General Instructions [facility] VisitID: [id number] [address] [place] [address] 41y, M Registration Date/Time: 03/30/2017 Precordial chest pain characterized as "tightness" .12 lead EKG performed. INSTRUCTIONS Follow-up: Blood pressure screening was not performed during this visit because the patient has an active diagnosis of hypertension. (Electronically signed by Arash Hudson Dr. 03/31/2017 7:38)
--- NOTE | 2017-03-31 07:38 | ED MAR SUMMARY ---
..... Medication Administration Record [facility] [address] [place] [address] Patient: MANNY GAN Visit ID: [id number] 41y, M Weight: 77.1 kg Height/Length: 65 in BMI: 28.3 ALLERGIES: Ativan Given 22:55 03/30/2017 Hari Guallpa R.N. Medication Administered: ASPIRIN [PO], Dose: 325 mg PO. Medication Ordered: Aspirin PO 325 mg (Do not crush or chew, NOW). Given 23:42 03/30/2017 Lola Land R.N. Medication Administered: DIAZEPAM [IVP] (DIAZEPAM), Dose: 10 mg IVP over 1 minute(s), Site: #1 left wrist. Medication Ordered: Diazepam IV 10 mg (HIGH ALERT MEDICATION, NOW). Given 00:46 03/31/2017 Hari Guallpa R.N. Medication Administered: MORPHINE [IVP], Dose: 4 mg IVP over 2 minute(s), Site: #2 right forearm. Medication Ordered: Morphine IV 4 mg (HIGH ALERT MEDICATION, NOW). Given 02:13 03/31/2017 Hari Guallpa R.N. Medication Administered: GI COCKTAIL RED [PO] (MAGNESIUM-ALUMINUM), Dose: 35 mL PO. Medication Ordered: GI Cocktail RED PO 35 mL with Lidocaine Viscous Mouth/Throat 10 mL, Diphenhydramine Oral 10 mL, Maalox Plus Oral 15 mL (NOW). Given 03:13 03/31/2017 Hari Guallpa R.N. Medication Administered: ACETAMINOPHEN [PO] (APAP), Dose: 1000 mg PO. Medication Ordered: Acetaminophen PO 1,000 mg (NOW). Given 03:16 03/31/2017 Hari Guallpa R.N. Medication Administered: NITROSTAT [SL], Dose: 0.4 mg SL. Medication Ordered: Nitrostat SL 0.4 mg (Do not crush or chew, NOW). Given 04:31 03/31/2017 Hari Guallpa R.N. Medication Administered: ALPRAZOLAM [PO], Dose: 1 mg PO. Medication Ordered: Alprazolam PO 1 mg (NOW). Given 05:34 03/31/2017 Hari Guallpa R.N. Medication Administered: MORPHINE [IVP], Dose: 4 mg IVP over 2 minute(s), Site: #2 right forearm. Medication Ordered: Morphine IV 4 mg (HIGH ALERT MEDICATION, NOW).
== END ==
LOC: ED SRH 22:39
DX: R07.2 Precordial pain (principal); I25.2 Old myocardial infarction; I25.10 Atherosclerotic heart disease of native coronary artery without angina pectoris; E78.5 Hyperlipidemia, unspecified; I10 Essential (primary) hypertension; Z79.82 Long term (current) use of aspirin; Z79.899 Other long term (current) drug therapy; Z87.891 Personal history of nicotine dependence; Z88.8 Allergy status to other drugs, medicaments and biological substances
CPT/HCPCS: 90004; 90100; 90616; 91320; 91556; 92235; 92530; 92610; 92720; 92760; 92761; 92762; 92763; 92764; 92765; 92766; 92767; 95059